=== PATIENT | female | born 1940 | race Caucasian/White ===

== ENCOUNTER → 2016-02-28 | Outpatient (CLI) | payer BC ==
--- NOTE | 2016-02-28 16:19 | DIAGNOSTIC IMAGING REPORT ---
RIBS UNILATERAL WITH PA CHEST CLINICAL HISTORY: FALL, LEFT ANTERIOR RIB PAIN, R/O FRACTURE trauma COMPARISON STUDY: None FINDINGS: Negative left ribs. Negative chest. IMPRESSION: Negative study Electronically signed by: Darnell Jansen M.D. 02/28/2016 4:17 PM Dictated Date/Time: 02/28/2016 4:16 PM
== END | disposition home or self-care (01) ==
LOC: C.RAD 15:51
PROVIDERS: ATTEND Nurse Practitioner Family
DX: R07.81 Pleurodynia (principal)

== ENCOUNTER → 2016-09-03 | Outpatient (CLI) | payer BC ==
--- NOTE | 2016-09-08 12:41 | CODING QUERY MEDICAL NECESSITY ---
SUPPORTING DIAGNOSIS NEEDED A supporting diagnosis is required for the test/procedure performed on this patient in order for us to be reimbursed by the patient's insurance. Please provide a supporting diagnosis for the following test/procedure listed below next to the test name along with your signature. *If there is no additional diagnosis for this patient that would support the following test/procedure please document that below next to the test/procedure. Test(s)/Procedure(s) that require a supporting diagnosis: * DXA, BONE DENSITY AXIAL DIAGNOSIS: Provider Signature: Date: Thank you Hui CCM [employer] Once completed, please kindly fax back to [phone] For questions please call [phone]
== END | disposition home or self-care (01) ==
LOC: C.MAMM 12:38
PROVIDERS: ATTEND Family Medicine
DX: M85.80 Other specified disorders of bone density and structure, unspecified site (principal)

== ENCOUNTER → 2016-09-12 | Outpatient (CLI) | payer BC ==
--- NOTE | 2016-09-12 10:36 | DIAGNOSTIC IMAGING REPORT ---
RIGHT SHOULDER MIN 2 VIEWS ROUTINE CLINICAL HISTORY: RIGHT SHOULDER PAIN Right pain COMPARISON: None. DISCUSSION: Mild degenerative change acromioclavicular and glenohumeral joints. No evidence for fracture or dislocation. No abnormal soft tissue calcifications. IMPRESSION: Mild degenerative change. No acute bony abnormality. The above report was generated using voice recognition software. It may contain grammatical, syntax or spelling errors. Electronically signed by: Darnell Jansen M.D. 09/12/2016 10:35 AM Dictated Date/Time: 09/12/2016 10:35 AM
== END | disposition home or self-care (01) ==
LOC: C.RAD1850 10:08
PROVIDERS: ATTEND Family Medicine
DX: M25.511 Pain in right shoulder (principal)

== ENCOUNTER → 2017-01-21 | Outpatient (CLI) | payer BC ==
--- NOTE | 2017-01-21 13:43 | MAMMOGRAPHY REPORT ---
BILATERAL DIGITAL SCREENING MAMMOGRAM TOMOSYNTHESIS WITH CAD: 01/21/2017 CLINICAL HISTORY: Routine screening. Patient has no complaints. TECHNIQUE: Breast tomosynthesis in addition to standard 2D mammography was performed. Current study was also evaluated with a Computer Aided Detection (CAD) system. COMPARISON: Comparison is made to exams dated: 01/21/2016 mammogram, 01/15/2015 mammogram, 4 mammogram, 01/12/2013 mammogram, 01/12/2012 mammogram, and 01/08/2011 mammogram - [facility]. BREAST COMPOSITION: There are scattered areas of fibroglandular density in both breasts. FINDINGS: A focal asymmetry in the 6:00 left breast is unchanged mammographically [facility], therefore likely benign. There are mild vascular calcifications in the breasts. No new suspicious mass, architectural distortion or cluster of microcalcifications is seen. IMPRESSION: ACR BI-RADS CATEGORY 1: NEGATIVE There is no mammographic evidence of malignancy. A 1 year screening mammogram is recommended. The pa tient will receive written notification of the results. Approximately 10% of breast cancers are not detected with mammography. A negative mammographic report should not delay biopsy if a clinically suggestive mass is present. Harleen Mustafa M.D. ay/:01/21/2017 12:47:00 Drafting Layout Man: Ruthann FRIEDMAN(Clarice)(M)(BD), [facility] letter sent: Normal 1/2 BI-RADS Code: ACR BI-RADS Category 1: Negative
== END | disposition home or self-care (01) ==
LOC: C.MAMM 11:30
PROVIDERS: ATTEND Obstetrics & Gynecology
DX: Z12.31 Encounter for screening mammogram for malignant neoplasm of breast (principal)

== ENCOUNTER 2019-05-09 06:41 | Observation (INO) ==
--- NOTE | 2019-04-07 12:22 | PAT Medication Instructions ---
Medication Instructions Date of Service April 07, 2019 Home Medications aspirin 81 mg tablet,delayed release 81 mg PO QDL multivitamin,kb-sxxx-ywpmnrge 1 tab PO QDL omega-3 fatty acids 1,000 mg capsule 1,000 mg PO QDD omeprazole 20 mg capsule,delayed release 20 mg PO QAM atorvastatin 10 mg PO PM calcium carbonate-vitamin D3 [Calcium 600 + D(3)] 1 cap PO QDL losartan 25 mg PO QAM vit C,G-Ne-mlpty-lutein-zeaxan [PreserVision AREDS-2] 1 tab PO QDL STOP taking 2 weeks before surgery (or as soon as possible if surgery is within 2 weeks) omega-3 fatty acids 1,000 mg capsule 1,000 mg PO QDD vit C,T-Wt-occij-lutein-zeaxan [PreserVision AREDS-2] 1 tab PO QDL DO NOT take the morning of surgery multivitamin,mz-escr-ducpcpkn 1 tab PO QDL calcium carbonate-vitamin D3 [Calcium 600 + D(3)] 1 cap PO QDL losartan 25 mg PO QAM Take morning of surgery With a small sip of water, OTHERWISE NOTHING TO EAT OR DRINK AFTER MIDNIGHT: aspirin 81 mg tablet,delayed release 81 mg PO QDL omeprazole 20 mg capsule,delayed release 20 mg PO QAM Take evening before surgery atorvastatin 10 mg PO PM Other Notes If you have any questions please call us at [phone] or [phone] or [phone] or [phone]
--- NOTE | 2019-04-08 12:40 | Anesthesiology Consultation ---
Date of Service April 08, 2019 Assessment & Plan (1) Encounter for pre-operative examination: Chart Review Chart Review: Acceptable Risk for Surgery and Patient seen in Pre Admission Testing Teaching & Discussion Pre-Anesthesia Teaching/Discussion Notes: Instructed NPO after midnight before surgery,except medications with 15 cc of water. Medication instructions provided according to the PAT guidelines. History Surgery Operation Date: 05/09/19 07:30 Proposed Procedures p Right Total Knee Arthroplasty - Victoriano Zambrano, Height/Weight Height: 4 ft 11 in Weight: 67.7 kg Allergies Allergy/AdvReac Type Severity Reaction Status Date / Time cimetidine [From TagProcureSafe] Allergy Mild RASH Verified 04/04/19 15:27 Medications Home Medications Medication Instructions Recorded Confirmed Last Taken aspirin 81 mg tablet,delayed 81 mg PO QDL 03/28/19 04/04/19 Unknown release multivitamin,aw-rdku-piuitzkm 1 tab PO QDL 03/28/19 04/04/19 Unknown omega-3 fatty acids 1,000 mg 1,000 mg PO QDD 03/28/19 04/04/19 Unknown capsule omeprazole 20 mg capsule,delayed 20 mg PO QAM 03/28/19 04/04/19 Unknown release atorvastatin 10 mg PO PM 04/04/19 04/04/19 Unknown calcium carbonate-vitamin D3 1 cap PO QDL 04/04/19 04/04/19 Unknown [Calcium 600 + D(3)] losartan 25 mg PO QAM 04/04/19 04/04/19 Unknown vit C,X-Ns-gudph-lutein-zeaxan 1 tab PO QDL 04/04/19 04/04/19 Unknown [PreserVision AREDS-2] Past Medical History Medical History GERD (gastroesophageal reflux disease) controlled Hx of skin cancer, basal cell Hx of squamous cell carcinoma of skin Hyperlipidemia Hypertension Obesity Osteoarthritis 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) Exercise / Class Metabolic Activity III < 4 Walking/Shop/Light housework Past Family History Family History Mother Family history of diabetes mellitus Sister Family history of diabetes mellitus Past Surgical History Surgical History History of laser refractive surgery Hx of cataract extraction Hx of colonoscopy Hx of nasal septoplasty Hx of tubal ligation Past Anesthesia History No Hx of Anesthesia Complications and No Family Hx of Anesthesia Complications History of PONV No Hx of PONV and No Hx of Motion Sickness Social History Smoking Status: Never smoker Do You Dip or Chew Tobacco: No Hx Alcohol Use: No Hx Substance Use: No Review of Systems Controlled reflux. Patient denies chest pain, shortness of breath, cough, wheezing, palpitations. Physical Exam Vital Signs VITALS BP 144/73 P 72 TEMP 97.9 SP02 95%RA RESP 18 PHYSICAL Full neck and c-spine range of motion. Full TMJ range of motion. TMD 2.5 finger breaths Mallampati Score 3 Dentition: full upper denture, several crowns and bridge on lower, missing lower molar Lungs: clear throughout to auscultation Cardiac: regular rate and rhythm, no murmurs noted Spine: normal Carotid arteries: negative bruit Extremities: no edema Testing Laboratory Results 04/08/19 13:06 04/08/19 13:06 PT 10.4 Seconds (9.0-12.0) 04/08/19 13:06 INR 1.0 (0.9-1.1) 04/08/19 13:06 APTT 25.6 Seconds (21.0-31.0) 04/08/19 13:06 Blood Type O Positive 04/08/19 13:06 Antibody Screen NEGATIVE 04/08/19 13:06 Electrocardiogram Date: 04/08/19 Findings: + NSR @ (71) Chest X-Ray Date: 04/08/19
--- NOTE | 2019-04-08 13:26 | XRay Report ---
XR chest Pre-admission PA/Lat CLINICAL HISTORY: Preoperative chest COMPARISON STUDY: February 28, 2016 FINDINGS: The cardiac and mediastinal contours are normal. There is no evidence of focal pulmonary co nsolidation. There is no evidence of failure. No pleural effusions are visualized.[ IMPRESSION: No active disease in the chest. ACT 112: Negative or not required by law. Electronically signed by: Dipak Braun M.D. 04/08/2019 1:25 PM
[2019-04-08 15:14] LABS: Basophils # (auto) 0.04 K/uL (0-0.2); Basophils % (auto) 0.5 %; Eosinophils # (auto) 0.07 K/uL (0-0.5); Eosinophils % (auto) 0.9 %; Hematocrit (blood only) 39.2 % (37-47); Hemoglobin 12.3 g/dL (12.0-16.0); Immature Granulocytes # (auto) 0.01 K/uL (0.00-0.02); Immature Granulocytes % (auto) 0.1 %; Lymphocytes # (auto) 2.34 K/uL (1.2-3.4); Lymphocytes % (auto) 29.8 %; Mean Corpuscular Hemoglobin 25.4 pg (25-34); Mean Corpuscular Hgb Conc 31.4 g/dL (32-36); Mean Platelet Volume 9.8 fL (7.4-10.4); Monocytes # (auto) 0.69 K/uL (0.11-0.59); Monocytes % (auto) 8.8 %; Neutrophils # (auto) 4.71 K/uL (1.4-6.5); Neutrophils % (auto) 59.9 %; Platelet Count 309 K/uL (130-400); RDW Coefficient of Variation 17.3 % (11.5-14.5); RDW Standard Deviation 51.5 fL (36.4-46.3); Red Blood Count 4.84 M/uL (4.2-5.4); White Blood Count 7.86 K/uL (4.8-10.8)
[2019-04-08 15:25] LABS: Partial Thromboplastin Ratio 0.9; Partial Thromboplastin Time 25.6 Seconds (21.0-31.0); Prothrombin Time 10.4 Seconds (9.0-12.0)
[2019-04-08 15:27] LABS: BUN Creatinine Ratio 22.9 (10-20); Calcium 8.8 mg/dl (8.5-10.1); Creatinine Clr Calc Pharmacy 41.7 ml/min; Est GFR (African American) 68.2; Est GFR (Non-African American) 58.9; Potassium 4.2 mmol/L (3.5-5.1)
--- NOTE | 2019-04-09 08:09 | Electrocardiogram Report ---
Test Reason : Blood Pressure : / mmHG Vent. Rate : 071 BPM Atrial Rate : 071 BPM P-R Int : 164 ms QRS Dur : 070 ms QT Int : 392 ms P-R-T Axes : 074 051 057 degrees QTc Int : 425 ms Normal sinus rhythm Normal ECG When compared with ECG of 12-SEP-1997 09:22, No significant change was found Confirmed by Doug Helms ([id number]) on 04/09/2019 8:09:40 AM Referred By: Victoriano Zambrano Confirmed By:Doug Helms
--- NOTE | 2019-05-06 13:40 | History & Physical Report ---
Date of Service May 06, 2019 Assessment & Plan (1) Osteoarthritis of right knee: We will proceed with a right total knee arthroplasty. Postoperatively she will be placed on aspirin and kept overnight in the hospital for postoperative medical management. She plans to use energy physical therapy upon discharge. Pam is a low to moderate risk for a right knee replacement surgery. Present on Admission?: Yes History of Present Illness Chief Complaint: Primary osteoarthritis of the right knee Primary Care Provider: Tracy Flannery DO Pam is a pleasant 78-year-old female who is been dealing with chronic increasing right knee pain. X-rays and clinical examination have been diagnostic for advanced osteoarthritis of the right knee. After failing extensive conservative treatment, she has elected to proceed with a right total knee arthroplasty. Allergies Allergy/AdvReac Type Severity Reaction Status Date / Time cimetidine [From TagUnicont] Allergy Mild RASH Verified 04/04/19 15:27 Home Medications Home Medications Medication Instructions Recorded Confirmed Type aspirin 81 mg tablet,delayed 81 mg PO QDL 03/28/19 04/04/19 History release multivitamin,hv-vnes-kvtubnxa 1 tab PO QDL 03/28/19 04/04/19 History omega-3 fatty acids 1,000 mg 1,000 mg PO QDD 03/28/19 04/04/19 History capsule omeprazole 20 mg capsule,delayed 20 mg PO QAM 03/28/19 04/04/19 History release atorvastatin 10 mg PO PM 04/04/19 04/04/19 History calcium carbonate-vitamin D3 1 cap PO QDL 04/04/19 04/04/19 History [Calcium 600 + D(3)] losartan 25 mg PO QAM 04/04/19 04/04/19 History vit C,I-Uq-qmsvd-lutein-zeaxan 1 tab PO QDL 04/04/19 04/04/19 History [PreserVision AREDS-2] Past Med/Surg History Medical History GERD (gastroesophageal reflux disease) controlled Hx of skin cancer, basal cell Hx of squamous cell carcinoma of skin Hyperlipidemia Hypertension Obesity Osteoarthritis 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) Surgical History History of laser refractive surgery Hx of cataract extraction Hx of colonoscopy Hx of nasal septoplasty Hx of tubal ligation Family History Mother Family history of diabetes mellitus Sister Family history of diabetes mellitus Social History Preferred Language: Occitan Communication Ability: Effective Beliefs That Will Affect Care: None Current Living Situation: Spouse Feels Safe at Home: Yes Smoking Status: Never smoker Do You Dip or Chew Tobacco: No ; Second Hand Exposure: Yes ; Hx Alcohol Use: No Hx Substance Use: No Review of Systems Review of Systems: All systems reviewed & are unremarkable except as noted in HPI & below Physical Exam Constitutional: WD/WN, vitals as above Eyes: PERRL, conjunctivae normal, anicteric sclerae ENMT: external ear and nose normal, oropharynx normal Neck: trachea midline, no thyromegaly Respiratory: normal respiratory effort Cardiovascular: RRR, no murmur, no edema Gastrointestinal (Abdomen): normal bowel sounds, soft, nontender, no hepatosplenomegaly Musculoskeletal: On physical examination of the right knee there is a trace effusion. There is near full range of motion and no evidence of instability. There is significant tenderness palpation along the medial and lateral joint lines and over the distal femoral condyles. Psychiatric: A+Ox3, euthymic affect Results & Data Diagnostic Findings Radiographs of the right knee demonstrate advanced osteoarthritis with joint space narrowing osteophyte formation and anta-ve-qieu articulation. PG Care Time/CCT Total # of Minutes Spent Total Time Spent with Patient: Total time spent is greater than 50% in coordination of care (as documented) at patient's floor/unit and/or counseling patient: Coding Level of Care Code 72559 Initial Inpt Care Lvl 2 Diagnoses Osteoarthritis of right knee M17.11
[~2019-05-09 06:41] MED LIST: ACETAMINOPHEN 500 MG TAB PO SCH; BUPIVACAINE 0.5 % 5 MG/1 ML PF 10ML VIAL ONE; CEFAZOLIN 1000MG 1,000 MG/7.5 ML SYR IV SCH; FAMOTIDINE 20 MG TAB PO SCH; GABAPENTIN 300 MG CAP PO SCH; LR 500ML BOLUS, THEN 15ML/HR IV SCH; LR 60ML/HR IV SCH; ROPIVACAINE 0.5% HCL/PF 150 MG, BUPIVACAINE 0.5% MPF 30 ML, EPINEPHrine 30MG/30ML (OR U... INSTIL SCH; TRANEXAMIC ACID 1,000 MG **IV Intra-op IV SCH; TRANEXAMIC ACID 1,000 MG **IV Pre-op IV SCH; dexAMETHasone 4 MG TAB PO SCH
[2019-05-09] MEDS ORDERED: fentaNYL citrate 100 MCG/2 ML VIAL ONE (07:39)
[2019-05-09] MEDS ORDERED: PROPOFOL IV EMULSION 10 MG/ML 20 ML VIAL IV ONE (07:39)
[2019-05-09] MEDS ORDERED: MIDAZOLAM HCL 1 MG/ML 2ML VIAL ONE (07:39)
[2019-05-09] MEDS ORDERED: LIDOCAINE HCL 2% 2 ML VIAL/AMP(20MG/ML) INFIL ONE (07:39)
[2019-05-09] MEDS ORDERED: DEXAMETHASONE SOD INJ 4 MG/ML VIAL ONE (07:39)
[2019-05-09] MEDS ORDERED: ONDANSETRON INJ 2 MG/ML 2 ML VIAL ONE (07:39)
--- NOTE | 2019-05-09 08:48 | History & Physical Bridge Note ---
Date of Service May 09, 2019 History & Physical Bridge Note I have examined the patient, reviewed the History & Physical and in the interval since the performance of the History & Physical I have noted the following changes of clinical significance: no changes noted
[2019-05-09] MEDS ORDERED: ONDANSETRON INJ 2 MG/ML 2 ML VIAL IV PRN ×2 (09:30→13:25)
[2019-05-09] MEDS ORDERED: ePHEDrine sulfate 50 MG/ML AMP IV PRN (09:30)
[2019-05-09] MEDS ORDERED: fentaNYL citrate 100 MCG/2 ML VIAL IV PRN (09:30)
[2019-05-09] MEDS ORDERED: ATROPINE SULFATE 0.1 MG/ML 10ML SYR IV PRN (09:30)
--- NOTE | 2019-05-09 10:40 | Operative Report ---
PG Post Operative Report Pre & Post Diagnosis Operation Date: 05/09/19 09:20 Pre-Op Diagnosis: Right Knee Degenerative Joint Disease Post-Op Diagnosis: Right Knee Degenerative Joint Disease I identified the patient and participated in the time-out.: Yes Procedure Operation Date: 05/09/19 09:20 Actual Procedures p Right Total Knee Arthroplasty(Right) - Victoriano Zambrano DO Surgeon Victoriano Zambrano DO [employer] Victoriano Colon PAC Estimated Blood Loss 20 Findings Consistent with Post-Op Diagnosis Specimens Right femoral and tibial bone Complications none Disposition Disposition: Recovery Room Indications Pam is a pleasant 79-year-old female who is been dealing with chronic increasing right knee pain. X-rays and clinical examination are diagnostic for primary osteoarthritis of the right knee. After failing conservative treatment, she elected to proceed with a right total knee arthroplasty. Description of Procedure Implants used: I used a [employer] Vanguard total knee arthroplasty system with a size 62.5 femur, 67 tibia, 28 patella, and a size 10 PS plus polyethylene bearing. All components were cemented in place with Palacos G cement. Pam arrived [facility] for the above procedure. She was seen in the preoperative holding area and the operative extremity was identified and signed. She was given a preoperative antibiotic, TXA, a spinal anesthetic and an adductor nerve block. She was taken back to the operating room and laid on the table in supine position. She was given basic sedation. The operative knee was then prepped and draped in sterile fashion. A timeout was done, and the patient and the operative extremity was properly identified. A midline incision was made directly over the patella. Dissection was taken down to the extensor mechanism. A subvastus arthrotomy was used. The medial retinaculum was released and the fat pad was mostly excised. The knee was flexed and the ACL, PCL, and meniscus were removed. A drill was sent down the center of the femoral canal followed by an intramedullary janet. Off that janet a distal femoral cutting block was placed. 9 mm was resected off the distal femur at 5 of valgus. A posterior referencing AP sizing guide was then placed on the distal femur. The femur measured to be a size 62.5. 2 drill holes were placed in 3 of external rotation. A 4-in-1 cutting block was then impacted into place. Anterior, posterior, and chamfer cuts were then made. The posterior stabilizing box guide was then impacted into place and the box was resected for the posterior stabilizing component. The proximal tibia was then exposed. A drill was sent down the center of the tibial canal followed by an intramedullary janet. Off that janet a proximal tibial resection guide was placed. The proximal tibia was then resected. The tibia measured to be a size 67. The tibial plate was then placed in the appropriate rotation and the tibia was punched. The posterior aspect of the knee was then opened up and any additional meniscus fragments and osteophytes were removed. Trial components were then placed. I used a size 10 PS plus polyethylene insert. The knee was brought through a full range of motion and felt to be stable. The patella was then everted and 8 mm was resected off the posterior aspect of the patella. The patella measured to be a size 28. 3 peg holes were then drilled. A trial patella was placed. The knee was once again brought through a full range of motion and felt to be stable. Trial components were then removed. The surrounding soft tissues were injected with 100 cc of an orthopedic pain control cocktail. All components were then cemented into place with Palacos G cement. The final polyethylene insert was then snapped into place and the anterior bar was locked. Once cement was dry the tourniquet was deflated. Hemostasis was obtained. A dilute betadyne lavage was then done for 3 minutes. The joint was then irrigated with normal saline solution. The subvastus arthrotomy was then closed with #1 Vicryl suture. The skin was closed with 2-0 Vicryl, 3-0V lock suture, and avery. A soft compressive dressing was placed. She was then transferred to a hospital bed and taken to the postanesthesia care unit in stable condition. She tolerated the procedure well. Victoriano Colon PA-C, was present for the entire procedure. He was critical for patient positioning, prepping, draping, retraction exposure, wound closure and application of sterile dressing. I attest to the content of the Intraoperative Record and any orders documented therein. Any exceptions are noted below.
--- NOTE | 2019-05-09 12:47 | Anesthesiology Progress Note ---
Date of Service May 09, 2019 Anesthesia Post Procedure Vital Signs Vital Signs: Temp Pulse Pulse Resp BP Pulse Ox 05/09/19 12:40 70 16 127/57 L 97 05/09/19 12:30 68 16 133/57 L 97 05/09/19 12:20 67 16 128/57 L 97 05/09/19 12:10 71 16 124/57 L 97 05/09/19 12:00 70 15 129/57 L 97 05/09/19 11:50 72 20 137/59 L 97 05/09/19 11:40 67 20 127/57 L 97 05/09/19 11:30 68 17 134/61 96 05/09/19 11:20 71 21 133/57 L 97 05/09/19 11:10 79 19 141/62 H 98 05/09/19 11:00 97.9 F 73 18 129/52 L 98 05/09/19 07:04 98.1 F 89 20 179/71 H 94 Transfer of Care Handoff Completed per policy Notes Mental Status: alert / awake / arousable and participated in evaluation Patient Amnestic to Procedure: Yes Nausea / Vomiting: adequately controlled Pain: adequately controlled Airway Patency, RR, SpO2: stable & adequate BP & HR: stable & adequate Hydration State: stable & adequate Neuraxial Anesthesia: was administered and sensory block is resolving Anesthetic Complications: no major complications apparent and Pt Satisfied with anesthetic care
[2019-05-09] MEDS ORDERED: OXYCODONE HCL IR 5 MG TAB (IMMEDIATE RELEASE) PO PRN (13:25)
[2019-05-09] MEDS ORDERED: MAGNESIUM HYDROXIDE SUSP 30 ML UDC PO PRN (13:25)
[2019-05-09] MEDS ORDERED: bisacodyL 10 MG SUPP PR PRN (13:25)
[2019-05-09] MEDS ORDERED: METOCLOPRAMIDE HCL INJ 5 MG/ML 2 ML VIAL IV PRN (13:25)
[2019-05-09] MEDS ORDERED: HYDROmorphone INJ 0.5 MG/0.5 ML SYR IV PRN (13:25)
[2019-05-09] MEDS ORDERED: NALOXONE HCL 0.4 MG/1 ML VIAL/CARP IV PRN (13:25)
[2019-05-09] MEDS: SODIUM CHLORIDE 0.9% 1000ML 1,000 ML IV SCH (14:22)
[2019-05-09] MEDS: ACETAMINOPHEN 500 MG TAB PO SCH ×2 (14:23→22:13)
[2019-05-09] MEDS: KETOROLAC TROMETHAMINE 15 MG/ML VIAL IV SCH ×2 (15:00→22:11)
[2019-05-09] MEDS: CEFAZOLIN 2000MG 2,000 MG/15 ML SYR IV SCH (17:35)
[2019-05-09] MEDS: DOCUSATE SODIUM 100 MG CAP PO SCH (20:44)
[2019-05-09] MEDS: ASPIRIN 81 MG ECTAB PO SCH (20:46)
[2019-05-09] MEDS ORDERED: ATORVASTATIN 10 MG TAB PO SCH (21:00)
[2019-05-09] MEDS ORDERED: SENNA 8.6 MG TAB PO SCH (21:00)
[2019-05-10] MEDS: SODIUM CHLORIDE 0.9% 1000ML 1,000 ML IV SCH (00:37)
[2019-05-10] MEDS: CEFAZOLIN 2000MG 2,000 MG/15 ML SYR IV SCH (01:03)
[2019-05-10] MEDS: KETOROLAC TROMETHAMINE 15 MG/ML VIAL IV SCH ×2 (03:25→10:10)
[2019-05-10] MEDS: ACETAMINOPHEN 500 MG TAB PO SCH (05:39)
[2019-05-10 06:23] LABS: Hematocrit (blood only) 35.9 % (37-47); Hemoglobin 11.4 g/dL (12.0-16.0); Mean Corpuscular Hemoglobin 26.9 pg (25-34); Mean Corpuscular Hgb Conc 31.8 g/dL (32-36); Mean Corpuscular Volume 84.7 fL (80-100); Mean Platelet Volume 9.7 fL (7.4-10.4); Platelet Count 251 K/uL (130-400); RDW Coefficient of Variation 17.1 % (11.5-14.5); RDW Standard Deviation 52.8 fL (36.4-46.3); Red Blood Count 4.24 M/uL (4.2-5.4); White Blood Count 10.93 K/uL (4.8-10.8)
[2019-05-10 06:58] LABS: BUN Creatinine Ratio 21.5 (10-20); Calcium 8.5 mg/dl (8.5-10.1); Est GFR (African American) 56.9; Est GFR (Non-African American) 49.1; Potassium 3.9 mmol/L (3.5-5.1)
--- NOTE | 2019-05-10 06:59 | Orthopedic Progress Note ---
Date of Service May 10, 2019 Assessment & Plan (1) History of total right knee replacement: Overall she is doing very well. She is not having much pain in the right knee. She will be seen by physical therapy today for ambulation and range of motion exercises. She is on aspirin for DVT prophylaxis. She can be discharged home later today. She will follow-up with orthopedics in 2 weeks. Present on Admission?: Yes Subjective Pam was seen and examined at bedside this morning. Overall she is doing very well. She denies any pain in the right knee. She is already been up and ambulating around the nurses station. She has no complaints. Physical Exam Musculoskeletal: On physical examination of the right knee, the dressing is clean and dry. She has active dorsiflexion and plantarflexion of her right ankle. Her leg is out in full extension. Results & Data ([facility]) Vital Signs (Past 12 Hours) Vital Signs Temp Pulse Resp BP Pulse Ox 05/10/19 03:20 36.6 C 67 18 139/63 96 05/09/19 22:48 36.4 C L 66 18 143/60 H 93 05/09/19 19:25 36.7 C 69 17 120/64 96 Laboratory Results H & H 04/08/19 05/10/19 Range/Units 13:06 06:01 Hgb 12.3 11.4 L (12.0-16.0) g/dL Hct 39.2 35.9 L (37-47) % Coagulation 04/08/19 Range/Units 13:06 INR 1.0 (0.9-1.1) Diagnostic Findings Postoperative x-rays of the right knee show the prosthesis to be in anatomic alignment without any evidence of fracture, dislocation, or loosening. PG Care Time/CCT Total # of Minutes Spent Total Time Spent with Patient: Total time spent is greater than 50% in coordination of care (as documented) at patient's floor/unit and/or counseling patient: Coding Level of Care Code None Diagnoses History of total right knee replacement Z96.651
--- NOTE | 2019-05-10 07:00 | Discharge Summary ---
Date of Service May 10, 2019 Admission HPI Per Admitting Provider Pam is a pleasant 78-year-old female who is been dealing with chronic increasing right knee pain. X-rays and clinical examination have been diagnostic for advanced osteoarthritis of the right knee. After failing e xtensive conservative treatment, she has elected to proceed with a right total knee arthroplasty. Principal Diagnosis Right total knee arthroplasty Discharge Data Allergies Allergy/AdvReac Type Severity Reaction Status Date / Time cimetidine [From Tagamet] Allergy Mild RASH Verified 05/09/19 07:02 Consultations 05/09/19 13:25 Consult Case Management - Discharge Planning Routine Procedures Performed Operation Date: 05/09/19 09:20 Actual Procedures p Right Total Knee Arthroplasty(Right) - Victoriano Zambrano DO Ordered Studies 05/09/19 05:00 US - OR guided needle placemen Routine Hospital Course (1) History of total right knee replacement: On May 09, 2019 Pam arrived at [facility] and underwent a right total knee arthroplasty without complication. She had a spinal anesthetic. Postoperatively she was started on aspirin for DVT prophylaxis and transferred to the general orthopedic floors. Her hospital course was uneventful. On postop day #1 her H&H was stable and her pain was well controlled. She was able to participate well with physical therapy doing ambulation and range of motion exercises. She was then discharged home. She will follow-up with orthopedics in 2 weeks. Total Time Total Time Spent Total Time Spent (In Minutes): 20 Discharge Plan Discharge Items Patient Disposition: Home - Home Health Services Reason For Visit: Right Knee Degenerative Joint Disease Discharge Diagnosis: Right total knee arthroplasty Activity: As commented below Non-emergency contact: Surgeon Call non-emergency contact if: your wound has increased redness and your wound has increased drainage Follow-up/Referrals: Tracy Flannery DO [Primary Care Provider] - Diet: Regular Addtl Attending Provider Instructions: Activity and Therapy Recommendations: * If you are using [facility] then therapy will be provided at your home until they feel you have accomplished all of your goals. * If you are using [facility] then Physical Therapy will be provided until they feel you are ready to start Outpatient Physical Therapy. * If you are not using home therapy then Outpatient Physical Therapy should start about 3-5 days from your day of surgery. Therapy will last about 6-10 weeks * It is important not to put a pillow under your knee when you are relaxing or sleeping. It is just as important to make sure you are getting your knee perfectly straight as it is to regain your knee bend. * You were shown a series of exercises in the hospital. Do these exercises three times each day including the exercises you were shown in physical therapy. * Get up and walk several times each day. For the first four weeks, try not to stand or walk for more than one hour at a time. If you do stand or walk for more than one hour, you will not hurt anything, but your leg will likely swell. * As you feel comfortable, you may change from the walker or crutches to a cane and then to independent walking. Medications: * Narcotic You will likely be sent home from the hospital with a prescription for the narcotic pain medication that worked best throughout your stay. * Aspirin Most patients will be required to take Aspirin 81mg twice a day for 6 weeks after surgery. This is obtained regx-coz-fsllxed and a prescription is not necessary. * Other medications may be prescribed for specific circumstances. If you have any questions, please call the office at . * Resume previous home medications unless otherwise instructed TEDs/Elastic Stockings: The white elastic stockings help limit swelling and prevent blood clots from forming in your legs.~ The more you wear them, the more they work. Wear them for six weeks. Dressing Care: If the incision is not draining then you may leave the avery open to air. If there is a little bit of drainage or if the avery are getting stuck on your clothing then cover the incision with a dry dressing. The avery will be removed at your 2 week follow-up appointment. Showering: You may shower 5 days from the day of surgery. Let the soapy shower water run over the avery and pat them dry. Do not scrub or soak the incision. Things To Watch For: * Drainage from the incision site that occurs more than one week after your surgery. * Increased redness at the incision site. * Fever above 102 degrees Fahrenheit. * Unusual chest pain or shortness of breath. * Call [facility] at with any of the above problems Follow-Up Visit: Follow-up with Dr. Zambrano 2-3 weeks after your day of surgery. An appointment was probably scheduled when you signed-up for surgery in the office. If you have any questions call Office Instructions: More detailed instructions as well as Frequently Asked Questions were provided in a folder by our office when you signed-up for surgery. Please review these instructions when you get home. If you have any further questions or concerns, please feel free to call the office at [phone] Pending Studies at Discharge: No Stand-Alone Forms: My [facility] Data, Smoking Cessation Medications and DC Order Prescriptions: New oxycodone 5 mg Tablet 5 mg PO Q4H PRN (Reason: pain) Qty: 30 RF: 0 Continued Complete Multivitamin Tablet 1 tab PO QDL RF: 0 omeprazole 20 mg capsule,delayed release(DR/EC) 20 mg PO QAM RF: 0 omega-3 fatty acids [Fish Oil Concentrate] 1,000 mg capsule 1,000 mg PO QDD RF: 0 atorvastatin 10 mg Tablet 10 mg PO PM RF: 0 Calcium 600 + D(3) 600 mg calcium- 200 unit Capsule 1 cap PO QDL RF: 0 losartan 25 mg Tablet 25 mg PO QAM RF: 0 PreserVision AREDS-2 [id number] xs-nmff-[id number]-mg Capsule 1 tab PO QDL RF: 0 Changed aspirin [Adult Low Dose Aspirin] 81 mg tablet,delayed release (DR/EC) 81 mg PO BID 42 Days Qty: 0 RF: 0 Discharge Orders: Discharge Order (Routine); Ordered 05/10/19 Ordered By: Victoriano Zambrano Admission Data Admit Date/Time: 05/09/19 11:01 Attending Provider: Victoriano Zambrano Admit Provider: Victoriano Zambrano Primary Care Provider: Tracy Flannery Coding Level of Care Code D/C Day Management <30 mins Diagnoses History of total right knee replacement Z96.651
--- NOTE | 2019-05-10 07:11 | XRay Report ---
XR knee RT 1 or 2V routine CLINICAL HISTORY: Surgical Post Op COMPARISON: Knee radiographs September 15, 2018. FINDINGS: Alignment of the total right knee arthroplasty is anatomic. There is no periprosthetic fra cture or unexpected radiopaque foreign body. There are skin avery. IMPRESSION: Expected findings following total right knee arthroplasty. ACT 112: Negative or not required by law. Electronically signed by: Markos Rangel M.D. 05/10/2019 7:10 AM
[2019-05-10] MEDS ORDERED: dexAMETHasone 4 MG TAB PO SCH (08:00)
[2019-05-10] MEDS: DOCUSATE SODIUM 100 MG CAP PO SCH (08:46)
[2019-05-10] MEDS: ASPIRIN 81 MG ECTAB PO SCH (08:47)
[2019-05-10] MEDS ORDERED: PANTOprazole 40 MG TAB PO SCH (09:00)
[2019-05-10] MEDS ORDERED: MULTIVITAMIN TAB PO SCH (09:00)
[2019-05-10] MEDS ORDERED: LOSARTAN POTASSIUM 25 MG TAB PO SCH (09:00)
--- NOTE | 2019-05-10 09:27 | Anesthesiology Progress Note ---
Date of Service May 10, 2019 Anesthesia Post Procedure Vital Signs Vital Signs: Temp Pulse Pulse Resp BP Pulse Ox 05/10/19 07:54 36.6 C 74 16 150/68 H 93 05/10/19 03:20 36.6 C 67 18 139/63 96 05/09/19 22:48 36.4 C L 66 18 143/60 H 93 05/09/19 19:25 36.7 C 69 17 120/64 96 05/09/19 18:48 36.7 C 66 17 128/69 93 05/09/19 16:11 36.8 C 69 17 156/68 H 95 05/09/19 15:08 36.5 C 79 16 147/84 H 94 05/09/19 14:12 36.9 C 90 18 147/66 H 97 05/09/19 13:39 36.4 C L 66 16 151/69 H 98 05/09/19 13:10 36.6 C 68 18 135/61 97 05/09/19 12:50 36.5 C 72 17 141/65 H 96 05/09/19 12:40 70 16 127/57 L 97 05/09/19 12:30 68 16 133/57 L 97 05/09/19 12:20 67 16 128/57 L 97 05/09/19 12:10 71 16 124/57 L 97 05/09/19 12:00 70 15 129/57 L 97 05/09/19 11:50 72 20 137/59 L 97 05/09/19 11:40 67 20 127/57 L 97 05/09/19 11:30 68 17 134/61 96 05/09/19 11:20 71 21 133/57 L 97 05/09/19 11:10 79 19 141/62 H 98 05/09/19 11:00 36.6 C 73 18 129/52 L 98 Notes Mental Status: alert / awake / arousable and participated in evaluation Nausea / Vomiting: adequately controlled Pain: adequately controlled Airway Patency, RR, SpO2: stable & adequate BP & HR: stable & adequate Hydration State: stable & adequate
== END 2019-05-10 12:00 | disposition home health service (06) ==
LOC: 3E 06:41 → ASU 06:41

== ENCOUNTER 2020-11-19 13:15 | Inpatient (IN) ==
[~2020-11-19 13:15] MED LIST changes: -ACETAMINOPHEN 500 MG TAB PO SCH; -BUPIVACAINE 0.5 % 5 MG/1 ML PF 10ML VIAL ONE; -CEFAZOLIN 1000MG 1,000 MG/7.5 ML SYR IV SCH; -FAMOTIDINE 20 MG TAB PO SCH; -GABAPENTIN 300 MG CAP PO SCH; +HEPARIN SOD (PORCINE) 1000 UNIT/ML ONE; -LR 500ML BOLUS, THEN 15ML/HR IV SCH; -LR 60ML/HR IV SCH; -ROPIVACAINE 0.5% HCL/PF 150 MG, BUPIVACAINE 0.5% MPF 30 ML, EPINEPHrine 30MG/30ML (OR U... INSTIL SCH; +TICAGRELOR 90 MG TAB PO ONE; -TRANEXAMIC ACID 1,000 MG **IV Intra-op IV SCH; -TRANEXAMIC ACID 1,000 MG **IV Pre-op IV SCH; -dexAMETHasone 4 MG TAB PO SCH
--- NOTE | 2020-11-19 13:28 | Pre Anesthesia Assessment ---
Date of Service November 19, 2020 Pre Sedation Assessment Cardiovascular RRR, no murmur, no edema Respiratory normal respiratory effort, lungs clear to auscultation Pre-Sedation Airway Assessment Smoking Status: Never smoker Hx Sleep Apnea: No Hx Difficult Intubation: No Short, Thick Neck: No Thyromental Distance: > or= 3.5 Finger Breadths Oral Cavity: + WNL Mallampati Class: III ASA: ASA4 Procedure Planning Contraindications for Sedation: none Current Medications Reviewed: Yes Notes The planned sedation has been discussed with the patient. Informed Consent was obtained. I have identified the patient, determined the appropriateness of sedation and have assessed the patient immediately prior to the procedure. All medicine(s) and interventions are by my order.
[2020-11-19] MEDS ORDERED: MIDAZOLAM HCL 1 MG/ML 2ML VIAL ONE (13:31)
[2020-11-19] MEDS ORDERED: fentaNYL citrate 100 MCG/2 ML VIAL ONE (13:32)
[2020-11-19] MEDS ORDERED: NITROGLYCERIN/D5W 100MCG/ML 20ML SYR ONE (13:32)
[2020-11-19] MEDS ORDERED: HEPARIN (PORCINE) 1000 UNIT/ML 10 ML (CATH LAB USE ONLY) ONE (13:32)
[2020-11-19] MEDS ORDERED: niCARdipine HCL INJ 2.5 MG/ML 10 ML AMP ONE (13:32)
--- NOTE | 2020-11-19 13:33 | Cardiology Consultation ---
Date of Consultation November 19, 2020 Assessment & Plan (1) Acute AL: Presentation consistent with inferolateral STEMI and recommend proceeding with emergent cardiac catheterization and likely primary PCI. No apparent contraindications to procedure. Discussed risks, benefits, alternatives of procedure with patient and they are willing to proceed. Given IV heparin and ticagrelor 180 mg in the ED. Further recommendations pending findings of coronary angiography. History of Present Illness Reason for Consultation: Heart alert History of Present Illness 80-year-old woman here with acute chest pain and ECG concerning for acute AL. Patient seen emergently in the ED after heart alert activated en route. No prior cardiac history. Cardiac risk factors include hypertension, dyslipidemia. Other medical issues include GERD, osteoarthritis. Chest pain began approximately 2 to 3 hours prior to arrival while trimming bushes in her yard. Describes 9 out of 10 substernal pain with associated nausea, diaphoresis. Denies similar symptoms in the past. Given sublingual nitroglycerin in route. Chest pain at time of arrival still 8-9/10. Hemodynamically stable. EKG showed [address] elevation on ECG en route. EKG on arrival showed sinus rhythm with improved inferior ST elevations but persistent lateral ST elevations and elevation in aVR. Allergies Allergy/AdvReac Type Severity Reaction Status Date / Time cimetidine [From [employer]] Allergy Mild RASH Verified 08/25/19 07:18 Home Medications Medication Instructions Recorded Confirmed Type multivitamin,cd-[id number]-[id number] 1 tab PO QDL 03/28/19 01/04/20 History (Complete Multivitamin) omega-3 fatty acids 1,000 mg 1,000 mg PO QDD 03/28/19 01/04/20 History capsule (Fish Oil Concentrate) omeprazole 20 mg capsule,delayed 20 mg PO QAM 03/28/19 01/04/20 History release atorvastatin 10 mg tablet 10 mg PO PM 04/04/19 01/04/20 History calcium carbonate-vitamin D3 600 1 cap PO QDL 04/04/19 01/04/20 History mg calcium-200 unit capsule (Calcium 600 + D(3)) losartan 25 mg tablet 25 mg PO QAM 04/04/19 01/04/20 History vit C 250 mg-vit E 90 mg-zinc 40 1 tab PO QDL 04/04/19 01/04/20 History mg-copper 1 au-gpqgta-ztegeh capsule (PreserVision AREDS-2) aspirin 81 mg tablet,delayed 81 mg PO BID 42 Days #0 tab 05/09/19 01/04/20 Rx release (Adult Low Dose Aspirin) oxycodone-acetaminophen 5 mg-325 1 tab PO Q6H PRN #20 tab 08/25/19 01/04/20 Rx mg tablet (Percocet) Patient History Medical History (Updated 11/19/20 @ 13:32 by Jay Chandler MD) GERD (gastroesophageal reflux disease) controlled Hx of skin cancer, basal cell Hx of squamous cell carcinoma of skin Hyperlipidemia Hypertension Obesity Osteoarthritis 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) Surgical History History of esophagogastroduodenoscopy (EGD) History of laser refractive surgery History of Mohs micrographic surgery for skin cancer x2 History of tonsillectomy History of tooth extraction all upper teeth History of total right knee replacement (~04/2019) Hx of cataract extraction Hx of colonoscopy Hx of nasal septoplasty Hx of tubal ligation Family History Mother Family history of diabetes mellitus Sister Family history of diabetes mellitus Other No family history of adverse response to anesthesia Social History Smoking Status: Never smoker Second Hand Exposure: Yes (father smoked); Hx Alcohol Use: Yes Alcohol type: wine Hx Substance Use: No Preferred Language: Croatian Communication Ability: Effective Ear Muff Assembler Required: No Beliefs That Will Affect Care: None marital status: Current Living Situation: Spouse Feels Safe at Home: Yes Assistive Devices: Denture - Upper Review of Systems Review of Systems: Not completed in the setting of emergent situation Physical Exam Physical Exam: General: Comfortable HEENT: Sclerae anicteric Lungs: Clear to auscultation bilaterally Cardiac: Regular rate and rhythm, no murmurs. Vascular: 2+ radial Abdomen: Soft, nontender Extremities: Well perfused, no peripheral edema Neuro: Nonfocal Psych: Alert orient x3, normal affect and mood PG Care Time/CCT Total # of Minutes Spent Total Time Spent with Patient: Total time spent is greater than 50% in coordination of care (as documented) at patient's floor/unit and/or counseling p atient: Coding Level of Care Code 83644 Initial Inpt Care Lvl 3 Diagnoses Acute AL I21.9
[2020-11-19 13:40] LABS: iSTAT Hemoglobin 12.9 g/dl (12.0-16.0); iSTAT Ionized Calcium 1.2 mmol/l (1.12-1.32)
[2020-11-19 13:42] LABS: Basophils # (auto) 0.02 K/uL (0-0.2); Basophils % (auto) 0.2 %; Eosinophils # (auto) 0.04 K/uL (0-0.5); Eosinophils % (auto) 0.4 %; Hematocrit (blood only) 39.9 % (37-47); Hemoglobin 12.4 g/dL (12.0-16.0); Immature Granulocytes # (auto) 0.02 K/uL (0.00-0.02); Immature Granulocytes % (auto) 0.2 %; Lymphocytes # (auto) 3.37 K/uL (1.2-3.4); Lymphocytes % (auto) 34.7 %; Mean Corpuscular Hemoglobin 28.2 pg (25-34); Mean Corpuscular Hgb Conc 31.1 g/dL (32-36); Mean Corpuscular Volume 90.9 fL (80-100); Mean Platelet Volume 10.1 fL (7.4-10.4); Monocytes # (auto) 0.61 K/uL (0.11-0.59); Monocytes % (auto) 6.3 %; Neutrophils # (auto) 5.65 K/uL (1.4-6.5); Neutrophils % (auto) 58.2 %; Platelet Count 282 K/uL (130-400); RDW Coefficient of Variation 14.3 % (11.5-14.5); RDW Standard Deviation 47.8 fL (36.4-46.3); Red Blood Count 4.39 M/uL (4.2-5.4); White Blood Count 9.71 K/uL (4.8-10.8)
[2020-11-19 13:53] LABS: Partial Thromboplastin Time 27.3 Seconds (21.0-31.0); Prothrombin Time 10.5 Seconds (9.0-12.0)
[2020-11-19] MEDS ORDERED: EPTIFIBATIDE 2 MG/ML 10 ML VIAL (CATH LAB USE ONLY) IV ONE ×3 (14:07→14:20)
[2020-11-19 14:17] LABS: Albumin Level 3.5 gm/dl (3.4-5.0); BUN Creatinine Ratio 15.9 (10-20); Calcium 9.5 mg/dl (8.5-10.1); Creatinine Clr Calc Pharmacy 36.5 ml/min; Est GFR (African American) 59.2 ml/min; Est GFR (Non-African American) 51.1 ml/min; Magnesium 2.3 mg/dl (1.8-2.4); Potassium 3.9 mmol/L (3.5-5.1)
--- NOTE | 2020-11-19 14:27 | Post Anesthesia Assessment ---
Date of Service November 19, 2020 Post Sedation Assessment Vital Signs Temp Pulse Resp BP Pulse Ox 11/19/20 13:22 97.7 F 18 11/19/20 13:20 76 23 140/66 97 11/19/20 13:17 75 21 122/59 L 97 Recovery Score Activity: Moves 4 extremities Respiration: Deep Breath/Cough Circulation: +/-20% PreAnes Value Consciousness: Fully Awake Oxygen Saturation: O2 needed for >90% Discharge Sedation Level of Care: Fast Track Phase II Post Sedation Plan On clinical assessment, the patient appears to have tolerated the sedation without complications. Patient is recovering as anticipated. Patient will continue to be monitored by nursing and may be discharged when sedation discharge criteria are met per below protocol. Upon Completions of procedure up to 15 minutes continue every 5 minute vital signs and the P.A.R. score; then discharge to a Phase I or Fast Track to Phase II per the following guidelines: * Discharge Patient to appropriate Phase II area if PAR is 8 or greater or return to pre- procedure baseline. The post - procedure orders will be as directed. * If PAR score is less than 8 or not return to pre-procedure baseline then patient will follow Phase I monitoring till PAR is reached for Phase II. The Phase I may be done in procedure room or may call to secure a Phase I area. * If naloxone or flumazenil are used for reversal, hold in Phase I for continued monitoring from when last reversal dose was given for a minimum of 60 minutes or longer pending the nurse and/or physician discretion of patient condition before discharge to Phase II. Please call the Sedation Physician to re-evaluate and complete post-note for discharge to Phase II area. Do NOT discharge from procedure sedation or Phase 1 until post- sedation evaluation note is complete by procedure /sedation MD Sedation Discharge Instructions to be given to the patient at discharge to home.
[2020-11-19] MEDS ORDERED: ACETAMINOPHEN 325 MG TAB PO PRN (14:28)
[2020-11-19] MEDS ORDERED: NITROGLYCERIN SL 0.4 MG/TAB TAB SL PRN (14:28)
[2020-11-19 14:30] LABS: Albumin Globulin Ratio 0.9 (0.9-2); Bilirubin,Total 0.7 mg/dl (0.2-1); Creatine Kinase MB 3.4 ng/ml (0.5-3.6); Total Protein 7.5 gm/dl (6.4-8.2); Troponin I 0.171 ng/ml (0-0.045)
[2020-11-19] MEDS ORDERED: ICU PROTOCOL FOR HYPERGLYCEMIA PRN (14:34)
--- NOTE | 2020-11-19 14:55 | Cardiac Catheterization ---
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 Cardiac Status Clinical evaluation leading to the procedure CAD Presenation: STEMI Anginal Classification: CCS IV Heart Failure: No Cardiogenic Shock within 24 Hours: No Cardiac Arrest within 24 Hours: No Imaging Studies Past 6 Months: No Stress Studies Past 6 Months: No Diagnostic Physicians Name: Bob Chandler MD Status: Emergency Closure Device Percutaneous Entry Location: Radial Closure Device: Radial Band Recommendations: PCI without planned CABG PCI Indication: Immediate PCI for STEMI Lesion Segment Name: Mid RCA Culprit Artery: Yes Stenosis Prior to Rx (%): 100 Chronic Total Occlusion: No IVUS: No FFR: No Pre-Procedure SEEMA Flow: 0 Previously Treated Lesion: No Lesion Complexity: Non-High/Non-C Lesion Length (mm): 20 Thrombus Present: Yes Bifurcation Lesion: No Guidewire Across Lesion: Stenosis Post-Procedure (%): 0 Post-Procedure SEEMA Flow: 3 Devices(s) Deployed: Yes Yes Intraprocedure Events Significant Disection: No Perforation: No Cardiac Cath Procedure Full Procedure Date November 19, 2020 Pre-Procedure Diagnosis Pre-Procedure Diagnosis: STEMI AUC Score AUC Score: 9 Post-Procedure Diagnosis Post-Procedure Diagnosis: Severe CAD, Successful PCI and Normal Intracardiac Pressures Procedure(s) Performed Procedure(s) Performed: Coronary Angiography, Left Heart Cath and Drug Eluting Stent Tailor Garment Fitter Bob Chandler MD Vascular Surgeon(s) Maurisio Estimated Blood Loss Estimated Blood Loss: 15 Medication(s) Medication(s): Fentanyl, Heparin, Integrilin, Lidocaine 1%, Nicardipine, Nitroglycerin and Versed Medication(s): Ticagrelor Summary of Findings Indication: STEMI/Heart Alert Access: 6 Fr right radial artery Catheters: [employer] left 3.5 guide Findings: LM -small, short, without significant disease LAD -small caliber, 70 to 80% proximal stenosis at takeoff of first septal. Remainder of vessel without significant disease. Ramusdiffuse 40 to 50% proximal to mid disease Circumflex -small, nondominant, no significant disease RCA -dominant, medium caliber, mild proximal disease prior to 100% earlymid acute occlusion. LVEDP -17 -- PCI -- Antithrombotic therapy: Heparin, Integrilin, ticagrelor Procedure: RCA cannulated with [employer] left 3.5 guide BMW wire passed across lesion into distal vessel Mid RCA lesion predilated with 2.5 compliant balloon Dilated lesion stented with 2.75 x 28 mm Xience drug-eluting stent Stent post-dilated with 3.0 noncompliant balloon IC vasodilators administered for spasm Questionable residual thrombus in distal aspect of stent. Redilated with 3.0 NC to high atmospheres. Given IC Integrilin bolus. Post procedure SEEMA 3 flow, stent well expanded with minimal residual stenosis and no apparent cardiac complications. Arterial Closure: TR band Summary: 1. Inferolateral STEMI/100% acute earlymid RCA occlusion 2. Moderate to severe non-culprit coronary artery disease -70 to 80% small proximal LAD 40 to 50% proximal to mid ramus 3. Normal intracardiac filling pressure 4. Successful PCI of proximal to mid RCA with single drug-eluting stent (2.75 x 28 mm Xience; postdilated with 3.0 NC). Recommendations: Admit to ICU for continued monitoring Loaded with ticagrelor 180 mg in ED Continue dual-antiplatelet therapy for at least 1 year. Trend troponins until peak, Check Echo Uptitrate beta-kamron/ARB as BP allows High-dose statin Consult cardiac Rehab We will consider PCI of small proximal LAD pending clinical course. Hemodynamics Rest Ao:: 145/57 Final Ao: 127/50/85 LV: 120/17 Recommendations Recommendations: PCI without planned CABG Specimens Specimens: None Radiation Exposure (mGy) 645 Contrast (mls) 95 Fluids (cc crystalloids) Fluids (cc crystalloids): 100 Drains Drains: None Anesthesia Moderate [id number] Procedural Complication(s) None Disposition ICU I attest to the content of the Intraoperative Record and any orders documented therein. Any exceptions are noted below. [facility] Card Cath Procedure Codes Cardiac Catheterization Procedure 1: Cardiovascular Cath Procedures: 16087 Coronaries and LHC (+/-LV) Moderate Sedation Procedure 1: Sedation/Anesthesia: 15806 Mod Sedation by the same physician;Init15 Min Child Age 5 & Up Procedure 2: Sedation/Anesthesia: 34695 Mod Sedation by the same physician; Ea [id number] Minutes Stenting Procedure 1: Cardiovascular Stent Procedures: 22080 Perc transluminal revascularization of acute sub/total occl, aMI PG Care Time/CCT Total # of Minutes Spent Total Time Spent with Patient: Total time spent is greater than 50% in coordination of care (as documented) at patient's floor/unit and/or counseling patient:
[2020-11-19] MEDS ORDERED: SODIUM CHLORIDE 0.9% 1000ML 1,000 ML IV SCH (15:30)
--- NOTE | 2020-11-19 15:33 | Critical Care Consultation ---
Date of Consultation November 19, 2020 Assessment & Plan (1) ST elevation (STEMI) myocardial infarction involving right coronary artery: Reason Critically Ill: 80 year old female who presented en-route via EMS as a heart alert with w/ atypical angina, ecg w/ anterolateral ST elevations, trop of 0.171. She is in the ICU for management status post PCI with CT. Neuro - [facility] ICU: negative Cardiac - RCA STEMI Cardiac cath: 1. Inferolateral STEMI/100% acute earlymid RCA occlusion 2. 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 Medical regimen per interventional cardiology: DAPT x 1 year. Atorvastatin increased to 40mg daily. Metoprolol tartrate PO 12.5mg PO BID. TTE: Normal LV systolic function. EF 60-65. Small area of hypokinesis of distal inferior wall. Mild concentric LVH. HTN Continue home losartan. HLD Atorvastatin 40mg daily as above. Fasting lipid profile in AM. Respiratory - No hx of respiratory disease. Patient is saturating well on room air. GI - HH diet. RENAL/LYTES - No significant electrolyte derangement. NSS 100mL/hr. Replace lytes as needed. - No concerns at this time. Protonix 40 PO qAM. ENDO - No hx of DM or thyroid disease. A1C in AM. HEME - Stable H&H. Monitor. ID - No concerns for infection. LINES/IV ACCESS - L PIV and R radial TR band DVT PROPHYLAXIS - SCDs for now CODE: full DISPO: ICU (2) Status post percutaneous transluminal angioplasty (HARP MAKER) with stent placement: (3) GERD (gastroesophageal reflux disease): (4) Hyperlipidemia: (5) Hypertension: Supervising Physician Co-Signing Physician Notes Dr. Lebron was the resident-physician during care of patient. I separately evaluated patient for mena portions of the history and the exam. I was present during the critical portion of medical decision making, and I discussed the case with the resident. I generally agree with the findings and plan except for any additions/exceptions noted. Patient seen and examined at bedside. No acute distress. Patient is s/p stent placement in the RCA The time of examination patient denied any chest pain, no shortness of breath. No nausea or vomiting She stated she is feeling much better She just had her dinner Constitutional: No acute distress HEENT: EOMI, PERRLA Respiratory system: Good air entry bilaterally, no wheeze, no rhonchi, no crackles CVS: S1-S2 positive, no murmurs or gallops Abdomen: Soft, nontender, nondistended, positive bowel sounds x4 Extremities: +2 pulses bilaterally radialis/ dorsalis pedis, no cyanosis, no edema Neuro: Awake alert oriented x3 Psych: Normal mood and affect G/U: No Petty --Prophylaxis VTE: IPC's GI: Protonix Lines: Peripheral Diet: Cardiac Plan: Continue with dual antiplatelet therapy Continue with statin and beta-kamron Trend troponin and EKG Please note the above document was generated using voice recognition software. It may contain grammatical, syntax or spelling errors.Any formal questions or concerns about the content, text or information contained within the body of this dictation should be directly addressed to the provider for clarification. History of Present Illness Reason for Consultation: STEMI status post LABORATORY AIDE and stent Requesting Physician: Dr. Bautista Rehman Attending Physician: Dr. Jersey Lundberg History of Present Illness Pam Amor is a 80 y/o F former smoker (x 2 years) w/ PMHx of GERD, HTN, HLD, obesity, chronic mid-back pain and osteoarthritis who presented w/ 9/10 intensity mid chest pain at 11:30 AM today while she was trimming shrubbery in her yard. This was accompanied by nausea and diaphoresis; she did not feel short of breath. She had some mid-back pain prior to this, but denies any radiation. Patient has not had this chest pain in the past. The pain did not migrate locations and there was no associated arm/jaw pain or paresthesias. Sitting down decreased the intensity to a 7/10 after which she returned to gardening. The pain worsened again, so she called her daughter (~12:30pm) who then called EMS. At EMS arrival, patient was reportedly noted to have appeared slightly dyspneic. Patient states EMS gave her 4x baby ASA which helped the pain. She believes she was not given nitro. Heart alert was called en-route by EMS and patient was sent to denture laboratory technician upon arrival. Denies DM, pulmonary disease, kidney disease, VTE, or non- dermatological cancer. S/p the PCI, patient's chest pain has resolved and not returned. Allergies Allergy/AdvReac Type Severity Reaction Status Date / Time cimetidine [From Tagamet] Allergy Mild RASH Verified 08/25/19 07:18 Home Medications Medication Instructions Recorded Confirmed Type multivitamin,at-[id number] 1 tab PO QDL 03/28/19 01/04/20 History (Complete Multivitamin) omega-3 fatty acids 1,000 mg 1,000 mg PO QDD 03/28/19 01/04/20 History capsule (Fish Oil Concentrate) omeprazole 20 mg capsule,delayed 20 mg PO DIRECTED 03/28/19 01/04/20 History release atorvastatin 10 mg tablet 10 mg PO PM 04/04/19 01/04/20 History calcium carbonate-vitamin D3 600 1 cap PO QDL 04/04/19 01/04/20 History mg calcium-200 unit capsule (Calcium 600 + D(3)) losartan 25 mg tablet 25 mg PO QAM 04/04/19 01/04/20 History vit C 250 mg-vit E 90 mg-zinc 40 1 tab PO QDL 04/04/19 01/04/20 History mg-copper 1 kt-ekulum-[id number] capsule (PreserVision AREDS-2) aspirin 81 mg tablet,delayed 81 mg PO BID 42 Days #0 tab 05/09/19 01/04/20 Rx release (Adult Low Dose Aspirin) Patient History Medical History GERD (gastroesophageal reflux disease) controlled Hx of skin cancer, basal cell Hx of squamous cell carcinoma of skin Hyperlipidemia Hypertension Obesity Osteoarthritis 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) Surgical History History of esophagogastroduodenoscopy (EGD) History of laser refractive surgery History of Mohs micrographic surgery for skin cancer x2 History of tonsillectomy History of tooth extraction all upper teeth History of total right knee replacement (~04/2019) Hx of cataract extraction Hx of colonoscopy Hx of nasal septoplasty Hx of tubal ligation Family History Mother Family history of diabetes mellitus Sister Family history of diabetes mellitus Other No family history of adverse response to anesthesia Social History Smoking Status: Former smoker Second Hand Exposure: No; Do You Dip or Chew Tobacco: No; Tobacco Cessation Education Requested by Patient: No Hx Alcohol Use: Yes (rarely) Alcohol type: wine Hx Substance Use: No Preferred Language: Estonian Communication Ability: Effective Chief Clinical Officer Required: No Beliefs That Will Affect Care: None marital status: Current Living Situation: Spouse Other Information That Helps Us Care for You: No Feels Safe at Home: Yes Safety Concerns: Feels Safe At This Time Assistive Devices: Denture - Upper Assistive Devices Comment: with patient Review of Systems Review of Systems: Constitutional: Denies fever, chills Eyes: Denies blurry vision, vision changes ENT: Denies sore throat, sinus pain Cardiovascular: Denies palpitations. No current chest pain. Respiratory: Denies shortness of breath Gastrointestinal: Denies abdominal pain, constipation. + diarrhea x 1 episode. + emesis x 1. Genitourinary: Denies urinary symptoms including dysuria Musculoskeletal: Denies weakness, muscle aches/pain, joint aches/pain Neurological: Denies headache, numbness, tingling, focal weakness Physical Exam Physical Exam: General: Grossly A&O. NAD. Cooperative. HEENT: Atraumatic, normocephalic. EOMI. PERRL. + bilateral carotid bruits. Moist mucous membranes. Wearing dentures. Pulm: CTAB, slightly decreased (symmetric bilaterally) air entry diffusely, most notable at bases. -wheezes, -rales, -rhonchi. No respiratory distress. Cardiac: RRR, -mrg. Radial pulses intact and symmetrical. Radial and DP pulses 2+ bilaterally. Trace BLE. Abdominal: Nontender, nondistended, soft. Neuro: CN II-XII intact. 5+/5 strength of extremities. Integumentary: PIV and TR band w/o surrounding erythema. Results & Data Results & Data ([facility]) Vital Signs (Past 12 Hours) Vital Signs Temp Pulse Pulse Resp BP BP Pulse Ox 11/19/20 14:45 81 16 108/45 L 91 11/19/20 14:28 84 16 114/43 L 92 11/19/20 13:22 36.5 C 18 11/19/20 13:20 76 23 140/66 97 11/19/20 13:17 75 21 122/59 L 97 Laboratory Results Cardiac Enzymes 11/19/20 11/19/20 Range/Units 13:20 13:20 AST 16 (15-37) U/L CK-MB (CK-2) 3.4 (0.5-3.6) ng/ml Troponin I Cancelled 0.171 H* Coagulation 11/19/20 Range/Units 13:20 PT 10.5 (9.0-12.0) Seconds APTT 27.3 (21.0-31.0) Seconds CBC 11/19/20 Range/Units 13:20 WBC 9.71 (4.8-10.8) K/uL RBC 4.39 (4.2-5.4) M/uL Hgb 12.4 (12.0-16.0) g/dL Hct 39.9 (37-47) % Plt Count 282 (130-400) K/uL Neut # (Auto) 5.65 (1.4-6.5) K/uL Lymph # (Auto) 3.37 (1.2-3.4) K/uL [place] # (Auto) 0.61 H (0.11-0.59) K/uL Eos # (Auto) 0.04 (0-0.5) K/uL Baso # (Auto) 0.02 (0-0.2) K/uL Comprehensive Metabolic Panel 11/19/20 Range/Units 13:20 Sodium 138 (136-145) mmol/L Potassium 3.9 (3.5-5.1) mmol/L Chloride 103 (98-107) mmol/L Carbon Dioxide 26 (21-32) mmol/L BUN 17 (7-18) mg/dl Creatinine 1.04 (0.6-1.2) mg/dl Glucose 144 H (70-99) mg/dl Calcium 9.5 (8.5-10.1) mg/dl AST 16 (15-37) U/L ALT 16 (12-78) U/L Alkaline Phosphatase 73 (45-117) U/L Total Protein 7.5 (6.4-8.2) gm/dl Albumin 3.5 (3.4-5.0) gm/dl Intake and Output 11/19/20 11/19/20 11/19/20 06:59 14:59 22:59 Intake Total 100 / 100 Balance 100 / 100 Intake: Oral 100 / 100 Other: Weight 67.1 kg Weight Measurement Method Built in [facility] Patient Weight 11/20/20 06:59 Weight 67.1 kg Resident Activity Tracking Resident Involvement: Resident Care Provided Care Provided: Adult Hospital Medicine
[2020-11-19] MEDS ORDERED: INFLUENZA VACCINE HIGH DOSE PF 65+ 0.7 ML SYR IM ONE (15:52)
--- NOTE | 2020-11-19 16:47 | History & Physical Report ---
Date of Service November 19, 2020 Assessment & Plan (1) ST elevation (STEMI) myocardial infarction involving right coronary artery: Plan: Attending: Dr. Rehman Impression: 80-year-old female with acute chest pain today. Arrived at the emergency department by ambulance and found to have ST elevated LA. Taken to catheterization lab and received drug-eluting stent to the RCA. Transferred to the intensive care unit for overnight observation. TR band in place. Patient with no loss of consciousness and no CPR performed Successful placement of drug-eluting stent to RCA by Dr. Chandler Monitor in the intensive care unit overnight TR band still in place -deflate and remove per protocol Advised patient that most likely she will need beta-kamron, aspirin, clopidogrel, and may require higher dose of atorvastatin Follow serial troponin Discharge plan per Dr. Chandler (2) Hypertension: Plan: Generally controlled as an outpatient with losartan Hemodynamically stable Further medical management per Dr. Chandler (3) Hyperlipidemia: Plan: Patient on atorvastatin 10 mg daily Previously was on a statin that caused achiness in the legs No history of rhabdomyolysis with previous agents (4) GERD (gastroesophageal reflux disease): Plan: Patient was on omeprazole chronically as an outpatient but this was stopped secondary to nausea and vomiting We will place patient on pantoprazole while inpatient and then discontinue PPI as an outpatient Further management per outpatient PCP (5) DVT prophylaxis: Plan: Chemical prophylaxis per cardiology Patient received loading dose and ongoing doses of clopidogrel SCDs ordered Please refer to Dr. Rehman's addendum for further recommendations and corrections Admission and Anticipated Discharge Date Admission Date: November 19, 2020 History of Present Illness Primary Care Provider: Tracy Flannery DO Attending: Dr. Rehman This is a 80-year-old female with a past medical history including hyperlipidemia, chin, GERD, osteoarthritis, arthrofibrosis of knee, partial blindness. The patient was at home doing gardening when she began having chest pain. She rates the initial chest pain as 8-9 out of 10. She sat down and rested for a while and states that the pain reduced to a 7 out of 10 so she went back to gardening. The pain continued and elevated back up to an 8 or 9 so she went inside and called for help. The patient was brought to the emergency department and found to have EKG changes. A heart alert was called and patient was taken to the catheterization clinic urgently and found to have 100% in-stent blockage of the RCA. She received a drug-eluting stent and was transferred to the intensive care unit for postoperative management. The patient states that she has minimal risk factors. She only smoked for 2 or 3 years in her late teens early 20s. She has no other risk factors. She has no first-degree relatives with heart disease. She does report that she had some nausea at the time of her chest pain. She has not had chest pain or cardiac issues in the past. Patient has no other acute complaints. Allergies Allergy/AdvReac Type Severity Reaction Status Date / Time cimetidine [From Tagamet] Allergy Mild RASH Verified 08/25/19 07:18 Home Medications Medication Instructions Recorded Confirmed Type multivitamin,ds-uzyq-vexcquzl 1 tab PO QDL 03/28/19 01/04/20 History (Complete Multivitamin) omega-3 fatty acids 1,000 mg 1,000 mg PO QDD 03/28/19 01/04/20 History capsule (Fish Oil Concentrate) omeprazole 20 mg capsule,delayed 20 mg PO DIRECTED 03/28/19 01/04/20 History release atorvastatin 10 mg tablet 10 mg PO PM 04/04/19 01/04/20 History calcium carbonate-vitamin D3 600 1 cap PO QDL 04/04/19 01/04/20 History mg calcium-200 unit capsule (Calcium 600 + D(3)) losartan 25 mg tablet 25 mg PO QAM 04/04/19 01/04/20 History vit C 250 mg-vit E 90 mg-zinc 40 1 tab PO QDL 04/04/19 01/04/20 History mg-copper 1 fv-gyplxv-oxaxqz capsule (PreserVision AREDS-2) aspirin 81 mg tablet,delayed 81 mg PO BID 42 Days #0 tab 05/09/19 01/04/20 Rx release (Adult Low Dose Aspirin) Past Med/Surg History Medical History GERD (gastroesophageal reflux disease) controlled Hx of skin cancer, basal cell Hx of squamous cell carcinoma of skin Hyperlipidemia Hypertension Obesity Osteoarthritis 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) Surgical History History of esophagogastroduodenoscopy (EGD) History of laser refractive surgery History of Mohs micrographic surgery for skin cancer x2 History of tonsillectomy History of tooth extraction all upper teeth History of total right knee replacement (~04/2019) Hx of cataract extraction Hx of colonoscopy Hx of nasal septoplasty Hx of tubal ligation Family History Mother Family history of diabetes mellitus Sister Family history of diabetes mellitus Other No family history of adverse response to anesthesia Social History Smoking Status: Former smoker Second Hand Exposure: No; Do You Dip or Chew Tobacco: No; Tobacco Cessation Education Requested by Patient: No Hx Alcohol Use: Yes (rarely) Alcohol type: wine Hx Substance Use: No Preferred Language: Russian Communication Ability: Effective Casting 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 Bilateral carotid bruits left worse than right LUNGS: CTA B/L, no wheezes, rales or rhonchi HEART: Regular, rate controlled. Patient has no murmurs gallops or rubs appreciated. ABDOMEN: Soft, NT, ND, BS Present EXTREMITIES: No LE edema, pedal pulses intact and equal bilaterally NEURO: A&OX3. Pupils equal round and reactive to light. Tongue is midline. Cerebellar function is intact. Strength is equal and appropriate bilateral upper and lower extremities. Cranial nerves II through XII appear to be grossly intact without focal deficit. Results & Data Results & Data ([facility]) Vital Signs (Past 12 Hours) Vital Signs Temp Pulse Pulse Resp BP BP Pulse Ox 11/19/20 15:51 74 17 127/53 L 100 11/19/20 15:36 77 22 125/51 L 98 11/19/20 14:45 81 16 108/45 L 91 11/19/20 14:28 84 16 114/43 L 92 11/19/20 13:22 36.5 C 18 11/19/20 13:20 76 23 140/66 97 11/19/20 13:17 75 21 122/59 L 97 Laboratory Results 11/19/20 13:20 11/19/20 13:20 11/19/20 11/19/20 13:20 13:20 Troponin I Cancelled 0.171 H* Code Status & VTE Plan Code Status Patient desires to be a level V: DO NOT INTUBATE DO NOT RESUSCITATE VTE Prophylaxis Plan VTE Prophylaxis will be ordered: Yes Supervising Physician Co-Signing Physician Notes I personally saw and examined the patient. I verified all mena points and agree with Marv Vance PA-C with the following exceptions and/or additions: 80 year old female admission for STEMI. Patient seen after cardiac catheterization. I discussed the case with Dr Chandler. Patient seen in ICU and is currently chest pain free with TR band in place. O/E WN/WD, no acute distress, HS 1+2, no murmurs, Chest CTAB A/P STEMI - ASA, Brillinta, Metoprolol, Losartan, Atorvastatin, s/p x1 CT to RCA. Appreciate ICU and cardiology co-management. Lipid profile and HbA1C with AM labs PG Care Time/CCT Total # of Minutes Spent Total Time Spent with Patient: Total time spent is greater than 50% in coordination of care (as documented) at patient's floor/unit and/or counseling patient: 60 minutes Coding Level of Care Code 44889 Initial Inpt Care Lvl [address] elevation (STEMI) myocardial infarction involving right coronary artery I21.11 Hypertension I10 Hyperlipidemia E78.5 GERD (gastroesophageal reflux disease) K21.9 DVT prophylaxis Z29.9 Time Spent (min) 60
--- NOTE | 2020-11-19 16:47 | XCELERA ---
[id number]
--- NOTE | 2020-11-19 16:53 | Emergency Department Note ---
History of Present Illness General Chief complaint: Heart Alert Source: patient Mode of arrival: EMS History of Present Illness Provider complaint: Chest pain Onset (ago): hour(s) Location: chest and left Radiation: non-radiation Pain Consistency: + constant Maximum Pain Intensity: 7 Quality: + other (Pressure) Relieved By: + medication (IV fentanyl) Associated symptoms: + diaphoresis and + nausea/vomiting; no cough, no fever/chills or no shortness of breath This is a 80-year-old female with history of hypertension presenting with chest pain. The patient states that she was pruning her bushes when it started. She states it started about an hour prior to arrival. She describes it as a pressure on the left side of her chest. It does not radiate. It is associated with diaphoresis and an episode of vomiting. It is better after she received IV fentanyl in the ambulance. Initially was a 10 out of 10 in severity and now it is a 8 out of 10. She denies any history of cardiac disease but does have a history of hypertension. She denies any recent illness, fever, cough or cold symptoms, shortness of breath, abdominal pain, diarrhea, leg swelling or pain or urinary symptoms. Home Medications Medication Instructions Recorded Confirmed Type multivitamin,[id number] 1 tab PO QDL 03/28/19 01/04/20 History (Complete Multivitamin) omega-3 fatty acids 1,000 mg 1,000 mg PO QDD 03/28/19 01/04/20 History capsule (Fish Oil Concentrate) omeprazole 20 mg capsule,delayed 20 mg PO DIRECTED 03/28/19 01/04/20 History release atorvastatin 10 mg tablet 10 mg PO PM 04/04/19 01/04/20 History calcium carbonate-vitamin D3 600 1 cap PO QDL 04/04/19 01/04/20 History mg calcium-200 unit capsule (Calcium 600 + D(3)) losartan 25 mg tablet 25 mg PO QAM 04/04/19 01/04/20 History vit C 250 mg-vit E 90 mg-zinc 40 1 tab PO QDL 04/04/19 01/04/20 History mg-copper 1 [id number] capsule (PreserVision AREDS-2) aspirin 81 mg tablet,delayed 81 mg PO BID 42 Days #0 tab 05/09/19 01/04/20 Rx release (Adult Low Dose Aspirin) Allergies Allergy/AdvReac Type Severity Reaction Status Date / Time cimetidine [From Tagamet] Allergy Mild RASH Verified 08/25/19 07:18 Past Med/Surg History Medical History GERD (gastroesophageal reflux disease) controlled Hx of skin cancer, basal cell Hx of squamous cell carcinoma of skin Hyperlipidemia Hypertension Obesity Osteoarthritis 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) Surgical History History of esophagogastroduodenoscopy (EGD) History of laser refractive surgery History of Mohs micrographic surgery for skin cancer x2 History of tonsillectomy History of tooth extraction all upper teeth History of total right knee replacement (~04/2019) Hx of cataract extraction Hx of colonoscopy Hx of nasal septoplasty Hx of tubal ligation Family History Mother Family history of diabetes mellitus Sister Family history of diabetes mellitus Other No family history of adverse response to anesthesia Social History Smoking Status: Former smoker Second Hand Exposure: No; Do You Dip or Chew Tobacco: No; Tobacco Cessation Education Requested by Patient: No Hx Alcohol Use: Yes (rarely) Alcohol type: wine Hx Substance Use: No Preferred Language: Haitian Communication Ability: Effective Academic Registrar Required: No Beliefs That Will Affect Care: None marital status: Current Living Situation: Spouse Other Information That Helps Us Care for You: No Feels Safe at Home: Yes Safety Concerns: Feels Safe At This Time Assistive Devices: Denture - Upper Assistive Devices Comment: with patient Review of Systems See HPI for pertinent positives & negatives. and A total of 10 systems reviewed and were otherwise negative Physical Exam Vital Signs Vital Signs - 24 hr 11/19/20 13:17 11/19/20 13:20 11/19/20 13:22 Temperature 36.5 C Temperature Source Oral Pulse Rate 75 76 Pulse Rate [Apical] Pulse Rate from SpO2 Sensor 74 81 Pulse Rhythm [Apical] Pulse Strength [Apical] Respiratory Rate 21 23 18 Respiratory Effort / Characteristics Non-Labored Spontaneous Respiratory Depth Normal Respiratory Pattern Regular Blood Pressure 122/59 L 140/66 Blood Pressure [Left Arm] Blood Pressure Mean 80 90 Blood Pressure Mean [Left Arm] Blood Pressure Position Sitting Blood Pressure Position [Left Arm] Pulse Oximetry 97 97 Oxygen Delivery Method Room Air Room Air Room Air Sepsis Recent Fever Within 48 Hours No Sepsis New/Unexplained Change in Mental Status No Sepsis Action Taken by Nursing No Action Required 11/19/20 13:25 11/19/20 14:28 Temperature Temperature Source Pulse Rate Pulse Rate [Apical] 84 Pulse Rate from SpO2 Sensor Pulse Rhythm [Apical] Regular Pulse Strength [Apical] Normal Respiratory Rate 16 Respiratory Effort / Characteristics Non-Labored Spontaneous Respiratory Depth Normal Respiratory Pattern Blood Pressure Blood Pressure [Left Arm] 114/43 L Blood Pressure Mean Blood Pressure Mean [Left Arm] 66 Blood Pressure Position Blood Pressure Position [Left Arm] Sitting Pulse Oximetry 92 Oxygen Delivery Method Room Air Room Air Sepsis Recent Fever Within 48 Hours Sepsis New/Unexplained Change in Mental Status Sepsis Action Taken by Nursing Constitutional: Vital signs reviewed. Eyes: Pupils are equal round reactive to light. Conjunctiva are noninjected. ENT: Pharynx is clear without erythema or exudate. Mucous membranes are moist. Neck supple without meningeal signs. Respiratory: Clear to auscultation bilaterally. Breath sounds are equal bilaterally. Cardiovascular: Regular rate and rhythm. No rubs or gallops. GI: Soft, nondistended and nontender. Bowel sounds are present. Musculoskeletal: No peripheral edema. No lower extremity tenderness. Integumentary: No cyanosis. or jaundice. Neurological: The patient is awake and alert. No focal deficits. Psychiatric: Normal affect. Not anxious appearing. Course Administered Medications Sodium Chloride (Nss 1000ml) 1,000 mls @ 100 mls/hr IV .Q10H BARRY Stop: 11/19/20 22:59 Last Admin: 11/19/20 15:20 Dose: 100 mls/hr Documented by: [id number] Discontinued Medications Eptifibatide (Eptifibatide 2 Mg/Ml 10 Ml Vial (Director Of [employer] Operations Use Only)) Confirm Administered Dose 20 mg IV .STK-MED ONE Stop: 11/19/20 14:08 Last Admin: 11/19/20 14:12 Dose: 6.2 ml Documented by: [id number] Eptifibatide (Eptifibatide 2 Mg/Ml 10 Ml Vial (Director Of [employer] Use Only)) Confirm Administered Dose 20 mg IV .STK-MED ONE Stop: 11/19/20 14:09 Last Admin: 11/19/20 14:13 Dose: 6.2 ml Documented by: [id number] Eptifibatide (Eptifibatide 2 Mg/Ml 10 Ml Vial (Director Of [employer] Use Only)) Confirm Administered Dose 20 mg IV .STK-MED ONE Stop: 11/19/20 14:21 Last Admin: 11/19/20 15:35 Dose: Not Given Documented by: [id number] Fentanyl Citrate (Fentanyl Citrate 100 Mcg/2 Ml Vial) Confirm Administered Dose 100 mcg .ROUTE .STK-MED ONE Stop: 11/19/20 13:33 Last Increment: 11/19/20 14:12 Dose: 50 mcg Documented by: [id number] Heparin Sodium (Porcine) (Heparin Sod (Porcine) 1000 Unit/Ml) Confirm Administered Dose 1,000 units .ROUTE .STK-MED ONE Stop: 11/19/20 13:14 Last Admin: 11/19/20 15:35 Dose: Not Given Documented by: [id number] Heparin Sodium (Porcine) (Heparin (Porcine) 1000 Unit/Ml 10 Ml ([employer] Of [employer] Use Only)) Confirm Administered Dose 10,000 units .ROUTE .ST-MED ONE Stop: 11/19/20 13:33 Last Admin: 11/19/20 14:13 Dose: 8,000 units Documented by: [id number] Heparin Sodium/Sodium Chloride (Heparin In Nss Infusion 1000 Unit/500 Ml (2 U/Ml) Bag) Confirm Administered Dose 3,000 units IV .STK-MED ONE Stop: 11/19/20 13:33 Last Admin: 11/19/20 15:35 Dose: Not Given Documented by: [id number] Midazolam HCl (Midazolam Hcl 1 Mg/Ml 2ml Vial) Confirm Administered Dose 2 mg .ROUTE .STK-MED ONE Stop: 11/19/20 13:32 Last Increment: 11/19/20 14:12 Dose: 1 mg Documented by: [id number] Nicardipine HCl (Nicardipine Hcl Inj 2.5 Mg/Ml 10 Ml Amp) Confirm Administered Dose 25 mg .ROUTE .STK-MED ONE Stop: 11/19/20 13:33 Last Admin: 11/19/20 15:35 Dose: Not Given Documented by: [id number] Nitroglycerin/Dextrose (Nitroglycerin/D5w 100mcg/Ml 20ml Syr) Confirm Administered Dose 2,000 mcg .ROUTE .STK-MED ONE Stop: 11/19/20 13:33 Last Admin: 11/19/20 15:35 Dose: Not Given Documented by: [id number] Ticagrelor (Ticagrelor 90 Mg Tab) Confirm Administered Dose 180 [facility] Stop: 11/19/20 13:14 Last Admin: 11/19/20 14:12 Dose: 180 mg Documented by: [id number] Critical Care Time Critical Care Time: Yes Total Critical Care Time: 32 I have personally spent approximately 32 minutes of critical care time in the direct management of this patient. This includes bedside care, interpretation of diagnostic studies, and testing, discussion with consultants, patient, and family members, and other required patient management activities. These minutes are in excess of all separately billable procedures. Medical Decision Making Differential Diagnosis STEMI, unstable angina, aortic aneurysm, GERD, pulmonary embolism Medical Records Attestation: I reviewed the patient's medical records. I did perform a limited focused review of portions of the patient's old chart on the electronic medical record. The patient has had no recent pertinent visits to this hospital. Home Medications Current Medication List: was personally reviewed by me Laboratory Data Attestation: I reviewed the patient's lab results. Result diagrams: 11/19/20 13:20 11/19/20 13:20 Lab Results 11/19/20 11/19/20 11/19/20 Range/Units 13:15 13:15 13:20 WBC (4.8-10.8) K/uL RBC (4.2-5.4) M/uL Hgb (12.0-16.0) g/dL POC Hgb (12.0-16.0) g/dl Hct (37-47) % POC Hct (37-47) % MCV (80-100) fL MCH (25-34) pg MCHC (32-36) g/dL RDW Std Deviation (36.4-46.3) fL RDW Coeff of Jesu (11.5-14.5) % Plt Count (130-400) K/uL MPV (7.4-10.4) fL Immature Gran % (Auto) % Neut % (Auto) % Lymph % (Auto) % Tucker % (Auto) % Eos % (Auto) % Baso % (Auto) % Neut # (Auto) (1.4-6.5) K/uL Lymph # (Auto) (1.2-3.4) K/uL Tucker # (Auto) (0.11-0.59) K/uL Eos # (Auto) (0-0.5) K/uL Baso # (Auto) (0-0.2) K/uL Immature Gran # (Auto) (0.00-0.02) K/uL PT (9.0-12.0) Seconds INR (0.9-1.1) APTT (21.0-31.0) Seconds PTT Ratio POC Sodium (135-144) mmol/L Sodium (136-145) mmol/L POC Potassium (3.3-5.0) mmol/L Potassium (3.5-5.1) mmol/L POC Chloride (101-112) mmol/L Chloride (98-107) mmol/L Carbon Dioxide (21-32) mmol/L POC Total CO2 (24-31) mmol/L Anion Gap (3-11) POC Anion Gap (16-25) mmol/L POC BUN (7-18) mg/dl BUN (7-18) mg/dl Creatinine (0.6-1.2) mg/dl POC Creatinine (0.6-1.3) mg/dl Est Cr Clr Drug Dosing ml/min Est GFR ( Amer) ml/min Est GFR (Non-Af Amer) ml/min BUN/Creatinine Ratio (10-20) Glucose (70-99) mg/dl POC Glucose (other) (70-99) mg/dl Calcium (8.5-10.1) mg/dl POC Ioniz Calcium Corona (1.12-1.32) mmol/l Magnesium (1.8-2.4) mg/dl Total Bilirubin (0.2-1) mg/dl AST (15-37) U/L ALT (12-78) U/L Alkaline Phosphatase (45-117) U/L Total Creatine Kinase (26-192) U/L CK-MB (CK-2) (0.5-3.6) ng/ml CK/CKMB % Calc (0-3.0) Troponin I Cancelled Total Protein (6.4-8.2) gm/dl Albumin (3.4-5.0) gm/dl Globulin (2.5-4.0) gm/dl Albumin/Globulin Ratio (0.9-2) Lipase (73-393) U/L COVID-19 [email or web address] SARS-CoV-2, RNA, NAAT NEGATIVE (NEGATIVE) 11/19/20 11/19/20 11/19/20 Range/Units 13:20 13:20 13:20 WBC 9.71 (4.8-10.8) K/uL RBC 4.39 (4.2-5.4) M/uL Hgb 12.4 (12.0-16.0) g/dL POC Hgb (12.0-16.0) g/dl Hct 39.9 (37-47) % POC Hct (37-47) % MCV 90.9 (80-100) fL MCH 28.2 (25-34) pg MCHC 31.1 L (32-36) g/dL RDW Std Deviation 47.8 H (36.4-46.3) fL RDW Coeff of Jesu 14.3 (11.5-14.5) % Plt Count 282 (130-400) K/uL MPV 10.1 (7.4-10.4) fL Immature Gran % (Auto) 0.2 % Neut % (Auto) 58.2 % Lymph % (Auto) 34.7 % Tucker % (Auto) 6.3 % Eos % (Auto) 0.4 % Baso % (Auto) 0.2 % Neut # (Auto) 5.65 (1.4-6.5) K/uL Lymph # (Auto) 3.37 (1.2-3.4) K/uL Tucker # (Auto) 0.61 H (0.11-0.59) K/uL Eos # (Auto) 0.04 (0-0.5) K/uL Baso # (Auto) 0.02 (0-0.2) K/uL Immature Gran # (Auto) 0.02 (0.00-0.02) K/uL PT 10.5 (9.0-12.0) Seconds INR 1.0 (0.9-1.1) APTT 27.3 (21.0-31.0) Seconds PTT Ratio 1.0 POC Sodium (135-144) mmol/L Sodium 138 (136-145) mmol/L POC Potassium (3.3-5.0) mmol/L Potassium 3.9 (3.5-5.1) mmol/L POC Chloride (101-112) mmol/L Chloride 103 (98-107) mmol/L Carbon Dioxide 26 (21-32) mmol/L POC Total CO2 (24-31) mmol/L Anion Gap 9.0 (3-11) POC Anion Gap (16-25) mmol/L POC BUN (7-18) mg/dl BUN 17 (7-18) mg/dl Creatinine 1.04 (0.6-1.2) mg/dl POC Creatinine (0.6-1.3) mg/dl Est Cr Clr Drug Dosing 36.5 ml/min Est GFR ( Amer) 59.2 ml/min Est GFR (Non-Af Amer) 51.1 ml/min BUN/Creatinine Ratio 15.9 (10-20) Glucose 144 H (70-99) mg/dl POC Glucose (other) (70-99) mg/dl Calcium 9.5 (8.5-10.1) mg/dl POC Ioniz Calcium Corona (1.12-1.32) mmol/l Magnesium 2.3 (1.8-2.4) mg/dl Total Bilirubin 0.7 (0.2-1) mg/dl AST 16 (15-37) U/L ALT 16 (12-78) U/L Alkaline Phosphatase 73 (45-117) U/L Total Creatine Kinase 76 (26-192) U/L CK-MB (CK-2) 3.4 (0.5-3.6) ng/ml CK/CKMB % Calc 4.5 H (0-3.0) Troponin I 0.171 H* Total Protein 7.5 (6.4-8.2) gm/dl Albumin 3.5 (3.4-5.0) gm/dl Globulin 4.0 (2.5-4.0) gm/dl Albumin/Globulin Ratio 0.9 (0.9-2) Lipase 143 (73-393) U/L COVID-19 Eval Order SARS-CoV-2, RNA, NAAT (NEGATIVE) 11/19/20 Range/Units 13:27 WBC (4.8-10.8) K/uL RBC (4.2-5.4) M/uL Hgb (12.0-16.0) g/dL POC Hgb 12.9 (12.0-16.0) g/dl Hct (37-47) % POC Hct 38 (37-47) % MCV (80-100) fL MCH (25-34) pg MCHC (32-36) g/dL RDW Std Deviation (36.4-46.3) fL RDW Coeff of Jesu (11.5-14.5) % Plt Count (130-400) K/uL MPV (7.4-10.4) fL Immature Gran % (Auto) % Neut % (Auto) % Lymph % (Auto) % Tucker % (Auto) % Eos % (Auto) % Baso % (Auto) % Neut # (Auto) (1.4-6.5) K/uL Lymph # (Auto) (1.2-3.4) K/uL Tucker # (Auto) (0.11-0.59) K/uL Eos # (Auto) (0-0.5) K/uL Baso # (Auto) (0-0.2) K/uL Immature Gran # (Auto) (0.00-0.02) K/uL PT (9.0-12.0) Seconds INR (0.9-1.1) APTT (21.0-31.0) Seconds PTT Ratio POC Sodium 139 (135-144) mmol/L Sodium (136-145) mmol/L POC Potassium 4.0 (3.3-5.0) mmol/L Potassium (3.5-5.1) mmol/L POC Chloride 102 (101-112) mmol/L Chloride (98-107) mmol/L Carbon Dioxide (21-32) mmol/L POC Total CO2 25 (24-31) mmol/L Anion Gap (3-11) POC Anion Gap 17.0 (16-25) mmol/L POC BUN 15 (7-18) mg/dl BUN (7-18) mg/dl Creatinine (0.6-1.2) mg/dl POC Creatinine 1.0 (0.6-1.3) mg/dl Est Cr Clr Drug Dosing ml/min Est GFR ( Amer) ml/min Est GFR (Non-Af Amer) ml/min BUN/Creatinine Ratio (10-20) Glucose (70-99) mg/dl POC Glucose (other) 146 H (70-99) mg/dl Calcium (8.5-10.1) mg/dl POC Ioniz Calcium Corona 1.20 (1.12-1.32) mmol/l Magnesium (1.8-2.4) mg/dl Total Bilirubin (0.2-1) mg/dl AST (15-37) U/L ALT (12-78) U/L Alkaline Phosphatase (45-117) U/L Total Creatine Kinase (26-192) U/L CK-MB (CK-2) (0.5-3.6) ng/ml CK/CKMB % Calc (0-3.0) Troponin I Total Protein (6.4-8.2) gm/dl Albumin (3.4-5.0) gm/dl Globulin (2.5-4.0) gm/dl Albumin/Globulin Ratio (0.9-2) Lipase (73-393) U/L COVID-19 Eval Order SARS-CoV-2, RNA, NAAT (NEGATIVE) ECG Data Attestation: I personally reviewed and interpreted this ECG as follows: Indication: + chest pain Rate (beats per minute): 67 Rhythm: + normal sinus ECG [place]: + Normal ECG ST segments: + ST depression and + ST elevation (Anterolateral) ECG Findings: no PVCs MDM Narrative I did take prehospital medical command for the patient. I did review the prehospital EKG which showed significant ST elevations consistent with STEMI in the inferior leads. There are ST depressions in the septal leads as well as slight elevation in the anterior lateral leads. Rhythm is normal sinus at a rate of 68. I did immediately call a heart alert. I recommended that they treat the patient with IV fentanyl and Zofran and avoid nitrates. She was given aspirin in the ambulance as well. I did evaluate the patient immediately on arrival as noted above. She is now complaining of 8 out of 10 chest pain which is improved from earlier. I did place an order for continuous cardiac monitoring. The monitor showed normal sinus rhythm at a rate of 70 bpm. I did order and personally review the patient's 12-lead EKG as described above. She appears now to have a anterior lateral STEMI with significant improvement of ST elevations in the inferior leads compared to prehospital EKG. I did discuss this with the patient. Dr. Chandler did evaluate the patient in the emergency department. She was started on heparin and Brilinta and immediately taken to the cardiac Director Of Retail Operations. I did discuss the diagnosis with the patient's daughter and over the telephone for the patient's bilateral request. I did order and review the patient's blood work as noted in the electronic medical record. CBC is unremarkable without leukocyte anemia. Electrolytes are unremarkable. Troponin is elevated at 0.17. Impression & Plan ST elevation (STEMI) myocardial infarction involving right coronary artery Discharge Plan Visit Data Chief Complaint: Heart Alert ED Provider: [facility] Discharge Problem: ST elevation (STEMI) myocardial infarction involving right coronary artery Patient Disposition: Admitted As Inpatient Discharge Instructions Interventions: ED Discharge Assessment Last Done: 11/19/20 13:25
[2020-11-19] MEDS ORDERED: PANTOprazole 40 MG TAB PO SCH (17:15)
--- NOTE | 2020-11-19 18:32 | Billing Data ---
Date of Service November 19, 2020 Coding Level of Care Code 58675 Initial Inpt Care Lvl 3
[2020-11-19] MEDS: METOPROLOL TARTRATE 25 MG TAB PO SCH (20:10)
[2020-11-19 20:57] LABS: Appearance Urine Clear (Clear); Bilirubin Urine Negative (Negative); Blood Urine Negative (Negative); Color Urine Yellow; Glucose Urine UA Negative (Negative); Ketones Urine 2+ (Negative); Leukocyte Esterase Urine Negative (Negative); Nitrite Urine Negative (Negative); Protein Urine Negative (Negative); Specific Gravity Urine > 1.045 (1.000-1.030); Urobilinogen Urine Negative (Negative)
[2020-11-20 02:25] LABS: Basophils # (auto) 0.01 K/uL (0-0.2); Basophils % (auto) 0.1 %; Eosinophils # (auto) 0.06 K/uL (0-0.5); Eosinophils % (auto) 0.8 %; Hematocrit (blood only) 35.9 % (37-47); Hemoglobin 11.3 g/dL (12.0-16.0); Immature Granulocytes # (auto) 0.01 K/uL (0.00-0.02); Immature Granulocytes % (auto) 0.1 %; Lymphocytes # (auto) 2.14 K/uL (1.2-3.4); Lymphocytes % (auto) 29.8 %; Mean Corpuscular Hemoglobin 28.6 pg (25-34); Mean Corpuscular Hgb Conc 31.5 g/dL (32-36); Mean Corpuscular Volume 90.9 fL (80-100); Mean Platelet Volume 9.7 fL (7.4-10.4); Monocytes # (auto) 0.77 K/uL (0.11-0.59); Monocytes % (auto) 10.7 %; Neutrophils # (auto) 4.19 K/uL (1.4-6.5); Neutrophils % (auto) 58.5 %; Platelet Count 238 K/uL (130-400); RDW Coefficient of Variation 14.2 % (11.5-14.5); RDW Standard Deviation 47.7 fL (36.4-46.3); Red Blood Count 3.95 M/uL (4.2-5.4); White Blood Count 7.18 K/uL (4.8-10.8)
[2020-11-20 03:14] LABS: BUN Creatinine Ratio 19.8 (10-20); Blood Urea Nitrogen 18 mg/dl (7-18); Calcium 8.9 mg/dl (8.5-10.1); Carbon Dioxide 25 mmol/L (21-32); Chloride 107 mmol/L (98-107); Creatinine Clr Calc Pharmacy 40.9 ml/min; Est GFR (African American) 67.7 ml/min; Est GFR (Non-African American) 58.5 ml/min; Glucose 96 mg/dl (70-99); HDL Cholesterol 57 mg/dl; LDL Cholesterol Direct 102 mg/dl; Potassium 4.1 mmol/L (3.5-5.1); Sodium 138 mmol/L (136-145)
[2020-11-20 03:38] LABS: Chol HDL Ratio 3; Cholesterol 171 mg/dl (0-200); Triglycerides 92 mg/dl (0-150); VLDL Cholesterol 18 mg/dl
[2020-11-20 06:36] LABS: Estimated Average Glucose 126 mg/dl
--- NOTE | 2020-11-20 07:51 | Critical Care Progress Note ---
Date of Service November 20, 2020 Assessment & Plan (1) ST elevation (STEMI) myocardial infarction involving right coronary artery: Plan: Reason Critically Ill: 80 year old female who presented en-route via EMS as a heart alert with w/ atypical angina, ecg w/ anterolateral ST elevations, trop of 0.171. She is in the ICU for management status post PCI with CT on 11/19/20. Plan is for patient to obtain PCI for 70-80% small proximal LAD. Neuro - [facility] ICU: negative Cardiac - RCA STEMI, coronary artery disease Cardiac cath: 1. Inferolateral STEMI/100% acute earlymid RCA occlusion 2. 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 Medical regimen per interventional cardiology: DAPT x 1 year. Atorvastatin increased to 40mg daily. Metoprolol tartrate PO 12.5mg PO BID. TTE: Normal LV systolic function. EF 60-65. Small area of hypokinesis of distal inferior wall. Mild concentric LVH. Return to central lab technician today for PCI of LAD. HTN Widened pulse pressure noted. Most likely 2/2 atherosclerosis given hx of CAD and audible bruits. Less likely from thyroid, pulmonary, anemia causes. Continue home losartan. HLD Atorvastatin 40mg daily as above. Fasting lipid profile reviewed. 92 T. 171 chol. LDL 102. HDL 57 Respiratory - No hx of respiratory disease. Patient is saturating well on room air. GI - Currently NPO. Protonix 40 PO qAM. RENAL/LYTES - No significant electrolyte derangement. NSS discontinued Replace lytes as needed. - No concerns at this time. ENDO - No hx of DM or thyroid disease. A1C 6.0, consistent w/ preDM HEME - Stable H&H. Monitor. ID - No concerns for infection. 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 Lebron was the resident-physician during care of patient. I separately evaluated patient for mena portions of the history and the exam. I was present during the critical portion of medical decision making, and I discussed the case with the resident. I generally agree with the findings and plan except for any additions/exceptions noted. Patient seen and examined at bedside. No acute distress. Patient is s/p stent placement in the RCA 11/20/20 Patient state that she is feeling better. Denies any chest pain, no headache, no nausea, no vomiting. Patient did have little bit of breakfast in the morning. Dr. Chandler saw the patient. She is planning to have another cath done for the 70% LAD lesion Constitutional: No acute distress HEENT: EOMI, PERRLA Respiratory system: Good air entry bilaterally, no wheeze, no rhonchi, no crackles CVS: S1-S2 positive, no murmurs or gallops Abdomen: Soft, nontender, nondistended, positive bowel sounds x4 Extremities: +2 pulses bilaterally radialis/ dorsalis pedis, no cyanosis, no edema Neuro: Awake alert oriented x3 Psych: Normal mood and affect G/U: No Petty --Prophylaxis VTE: IPC's GI: Protonix Lines: Peripheral Diet: Cardiac Plan: In/out: Positive weight 70, urine output 700 Continue with dual antiplatelet therapy Continue with statin and beta-kamron Patient to go to telemetry floor after the cath Please note the above document was generated using voice recognition software. It may contain grammatical, syntax or spelling errors.Any formal questions or concerns about the content, text or information contained within the body of this dictation should be directly addressed to the provider for clarification. Subjective No complaints overnight. Patient feels well. She is eating breakfast. Per interventional cardiology, planning to return to central lab technician today for PCI of the 70-80% small proximal LAD. Review of Systems Review of Systems: Constitutional: Denies fever, chills Eyes: Denies blurry vision, vision changes ENT: Denies sore throat, sinus pain Cardiovascular: Denies chest pain, palpitations Respiratory: Denies shortness of breath Gastrointestinal: Denies abdominal pain, nausea, vomiting, constipation, diarrhea Genitourinary: Denies urinary symptoms including dysuria Musculoskeletal: Denies weakness, muscle aches/pain, joint aches/pain Neurological: Denies headache, numbness, tingling, focal weakness Physical Exam 2 Physical Exam: General: Well appearing. Grossly A&O. NAD. Cooperative. HEENT: Atraumatic, normocephalic. EOMI. PERRL. Bilateral carotid bruits. Pulm: CTAB. -wheezes, -rales, -rhonchi. Exam unchanged from yesterday. No respiratory distress. Cardiac: RRR, -mrg. Radial pulses intact and symmetrical. No pitting edema appreciated at BLE. Abdominal: Nontender, nondistended, soft. Integumentary: No rash. PIVs intact and w/o erythema. Results & Data Results & Data ([facility]) Vital Signs (Past 12 Hours) Vital Signs 120s/40s. 91-94 on RA. afeb. Temp Pulse Pulse Resp BP BP Pulse Ox 11/20/20 07:41 62 11/20/20 07:39 36.4 C L 74 16 126/51 L 94 11/20/20 06:21 63 19 141/53 H 94 11/20/20 05:21 63 20 137/60 94 11/20/20 04:21 36.9 C 62 18 125/47 L 92 11/20/20 03:21 65 21 123/49 L 92 11/20/20 02:21 63 18 122/47 L 95 11/20/20 01:21 66 19 112/49 L 91 11/20/20 00:21 66 20 108/44 L 93 11/19/20 23:52 37 C 73 19 115/50 L 96 11/19/20 23:21 65 19 119/56 L 96 11/19/20 22:51 60 14 110/50 L 96 11/19/20 22:21 63 17 126/51 L 95 11/19/20 21:51 68 19 133/52 L 95 11/19/20 21:21 20 137/55 L 98 11/19/20 20:51 67 18 128/48 L 95 11/19/20 20:21 71 16 117/47 L 96 11/19/20 19:51 36.7 C 76 17 114/48 L 96 Laboratory Results no leukocytosis. Hb 12.4->11.3. electrolytes acceptable. Cr acceptable. A1c 6.0. trop 0.171->6.49->11.3->7.29. LDL 102. no new liver panel. no new imaging. cumulative 1.6L in 700 out. Cardiac Enzymes 11/19/20 11/19/20 11/19/20 Range/Units 13:20 13:20 20:41 AST 16 (15-37) U/L CK-MB (CK-2) 3.4 (0.5-3.6) ng/ml Troponin I Cancelled 0.171 H* 6.490 H* 11/20/20 11/20/20 Range/Units 02:06 09:49 AST (15-37) U/L CK-MB (CK-2) (0.5-3.6) ng/ml Troponin I 11.300 H* 7.290 H* Coagulation 11/19/20 Range/Units 13:20 PT 10.5 (9.0-12.0) Seconds APTT 27.3 (21.0-31.0) Seconds Lipids 11/20/20 Range/Units 02:06 Triglycerides 92 (0-150) mg/dl Cholesterol 171 (0-200) mg/dl HDL Cholesterol 57 mg/dl Cholesterol/HDL Ratio 3 CBC 11/19/20 11/20/20 Range/Units 13:20 02:06 WBC 9.71 7.18 (4.8-10.8) K/uL RBC 4.39 3.95 L (4.2-5.4) M/uL Hgb 12.4 11.3 L (12.0-16.0) g/dL Hct 39.9 35.9 L (37-47) % Plt Count 282 238 (130-400) K/uL Neut # (Auto) 5.65 4.19 (1.4-6.5) K/uL Lymph # (Auto) 3.37 2.14 (1.2-3.4) K/uL Gray # (Auto) 0.61 H 0.77 H (0.11-0.59) K/uL Eos # (Auto) 0.04 0.06 (0-0.5) K/uL Baso # (Auto) 0.02 0.01 (0-0.2) K/uL Comprehensive Metabolic Panel 11/19/20 11/20/20 Range/Units 13:20 02:06 Sodium 138 138 (136-145) mmol/L Potassium 3.9 4.1 (3.5-5.1) mmol/L Chloride 103 107 (98-107) mmol/L Carbon Dioxide 26 25 (21-32) mmol/L BUN 17 18 (7-18) mg/dl Creatinine 1.04 0.93 (0.6-1.2) mg/dl Glucose 144 H 96 (70-99) mg/dl Calcium 9.5 8.9 (8.5-10.1) mg/dl AST 16 (15-37) U/L ALT 16 (12-78) U/L Alkaline Phosphatase 73 (45-117) U/L Total Protein 7.5 (6.4-8.2) gm/dl Albumin 3.5 (3.4-5.0) gm/dl Intake and Output 11/19/20 11/20/20 11/20/20 22:59 06:59 14:59 Intake Total 580 / 1570 990 / 1570 240 / 240 Output Total 300 / 700 400 / 700 800 / 800 Balance 280 / 870 590 / 870 -560 / -560 Intake: IV 750 / 750 Sodium Chloride 0.9% 1000ML 1, 750 / 750 000 ml @ 100 mls/hr IV .Q10H BARRY Rx#:[id number] Oral 580 / 820 240 / 820 240 / 240 Output: Urine 300 / 700 400 / 700 800 / 800 # Bowel Movements 0 / 0 0 / 0 Other: Other Intake Source npo Weight 64.4 kg Weight Measurement Method Built in [facility] ECG Additional Comments: 11/20/20 ecg. Official report pending. Per my interpretation (resident): Anterolateral ST elevations from yesterday are not present. Inferior lead ST inversions more prominent. Compared to the 2 ecgs obtained on 11/19/20. Resident Activity Tracking Resident Involvement: Resident Care Provided Care Provided: Adult Hospital Medicine
[2020-11-20] MEDS: METOPROLOL TARTRATE 25 MG TAB PO SCH ×2 (08:08→20:07)
[2020-11-20] MEDS: ASPIRIN 81 MG ECTAB PO SCH (08:09)
[2020-11-20] MEDS: LOSARTAN POTASSIUM 25 MG TAB PO SCH (08:09)
[2020-11-20] MEDS: ATORVASTATIN 40 MG TAB PO SCH (08:09)
[2020-11-20] MEDS: TICAGRELOR 90 MG TAB PO SCH ×2 (08:09→20:07)
[2020-11-20] MEDS: PANTOprazole 40 MG TAB PO SCH (11:26)
[2020-11-20] MEDS ORDERED: fentaNYL citrate 100 MCG/2 ML VIAL ONE (12:07)
[2020-11-20] MEDS ORDERED: niCARdipine HCL INJ 2.5 MG/ML 10 ML AMP ONE (12:07)
[2020-11-20] MEDS ORDERED: HEPARIN (PORCINE) 1000 UNIT/ML 10 ML (CATH LAB USE ONLY) ONE (12:07)
[2020-11-20] MEDS ORDERED: MIDAZOLAM HCL 1 MG/ML 2ML VIAL ONE (12:07)
[2020-11-20] MEDS ORDERED: NITROGLYCERIN/D5W 100MCG/ML 20ML SYR ONE (12:08)
--- NOTE | 2020-11-20 13:01 | Post Anesthesia Assessment ---
Date of Service November 20, 2020 Post Sedation Assessment Vital Signs Temp Pulse Pulse Resp BP BP Pulse Ox 11/20/20 11:45 97.9 F 95 11/20/20 11:22 58 L 19 148/37 H 11/20/20 10:21 58 L 20 129/49 L 11/20/20 09:21 25 H 144/72 H 11/20/20 08:21 74 22 130/43 L 11/20/20 08:00 62 11/20/20 07:41 62 11/20/20 07:39 97.5 F L 74 16 126/51 L 94 11/20/20 06:21 63 19 141/53 H 94 11/20/20 05:21 63 20 137/60 94 11/20/20 04:21 98.4 F 62 18 125/47 L 92 11/20/20 03:21 65 21 123/49 L 92 11/20/20 02:21 63 18 122/47 L 95 11/20/20 01:21 66 19 112/49 L 91 11/20/20 00:21 66 20 108/44 L 93 11/19/20 23:52 98.6 F 73 19 115/50 L 96 11/19/20 23:21 65 19 119/56 L 96 11/19/20 22:51 60 14 110/50 L 96 11/19/20 22:21 63 17 126/51 L 95 11/19/20 21:51 68 19 133/52 L 95 11/19/20 21:21 20 137/55 L 98 11/19/20 20:51 67 18 128/48 L 95 11/19/20 20:21 71 16 117/47 L 96 11/19/20 19:51 98.1 F 76 17 114/48 L 96 11/19/20 19:21 72 20 125/49 L 96 11/19/20 18:21 70 24 120/52 L 95 11/19/20 18:00 98.4 F 11/19/20 17:51 81 20 125/63 95 11/19/20 17:36 82 20 141/67 H 97 11/19/20 17:21 78 23 127/61 95 11/19/20 17:06 83 15 130/49 L 99 11/19/20 16:51 85 18 129/60 97 11/19/20 16:36 88 15 103/80 95 11/19/20 16:21 80 127/50 L 100 11/19/20 16:06 78 19 126/54 L 100 11/19/20 15:51 74 17 127/53 L 100 11/19/20 15:36 77 22 125/51 L 98 11/19/20 14:45 81 16 108/45 L 91 11/19/20 14:28 84 16 114/43 L 92 11/19/20 13:22 97.7 F 18 11/19/20 13:20 76 23 140/66 97 11/19/20 13:17 75 21 122/59 L 97 Recovery Score Activity: Moves 4 extremities Respiration: Deep Breath/Cough Circulation: +/-20% PreAnes Value Consciousness: Fully Awake Oxygen Saturation: > 92% On Room Air Post Anesthesia Score: 10 Discharge Sedation Level of Care: Fast Track Phase II Post Sedation Plan On clinical assessment, the patient appears to have tolerated the sedation without complications. Patient is recovering as anticipated. Patient will continue to be monitored by nursing and may be discharged when sedation discharge criteria are met per below protocol. Upon Completions of procedure up to 15 minutes continue every 5 minute vital signs and the P.A.R. score; then discharge to a Phase I or Fast Track to Phase II per the following guidelines: * Discharge Patient to appropriate Phase II area if PAR is 8 or greater or return to pre- procedure baseline. The post - procedure orders will be as directed. * If PAR score is less than 8 or not return to pre-procedure baseline then patient will follow Phase I monitoring till PAR is reached for Phase II. The Phase I may be done in procedure room or may call to secure a Phase I area. * If naloxone or flumazenil are used for reversal, hold in Phase I for continued monitoring from when last reversal dose was given for a minimum of 60 minutes or longer pending the nurse and/or physician discretion of patient condition before discharge to Phase II. Please call the Sedation Physician to re-evaluate and complete post-note for discharge to Phase II area. Do NOT discharge from procedure sedation or Phase 1 until post- sedation evaluation note is complete by procedure /sedation MD Sedation Discharge Instructions to be given to the patient at discharge to home.
--- NOTE | 2020-11-20 13:04 | Cardiac Catheterization ---
ACC Data: Partner Cco Cardiac Status Clinical evaluation leading to the procedure CAD Presenation: STEMI Anginal Classification: CCS IV Heart Failure: No Cardiogenic Shock within 24 Hours: No Cardiac Arrest within 24 Hours: No Imaging Studies Past 6 Months: Yes Stress Studies Past 6 Months: No Diagnostic Physicians Name: Bob Chandler MD Status: Elective Closure Device Percutaneous Entry Location: Radial Closure Device: Radial Band Recommendations: PCI without planned CABG PCI Indication: Staged PCI Lesion Segment Name: Proximal LAD Culprit Artery: Yes Stenosis Prior to Rx (%): 75 Chronic Total Occlusion: No IVUS: No FFR: No Pre-Procedure SEEMA Flow: 3 Previously Treated Lesion: No Lesion Complexity: Non-High/Non-C Lesion Length (mm): 12 Thrombus Present: No Bifurcation Lesion: No Guidewire Across Lesion: Stenosis Post-Procedure (%): 0 Post-Procedure SEEMA Flow: 3 Devices(s) Deployed: Yes Yes Intraprocedure Events Significant Disection: No Perforation: No Cardiac Cath Procedure Full Procedure Date November 20, 2020 Pre-Procedure Diagnosis Pre-Procedure Diagnosis: CAD AUC Score AUC Score: 7 Post-Procedure Diagnosis Post-Procedure Diagnosis: Severe CAD and Successful PCI Procedure(s) Performed Procedure(s) Performed: Coronary Angiography and Drug Eluting Stent Flexo Folder Gluer Operator Bob Chandler MD Insurance Sales Specialist(s) Showers Estimated Blood Loss Estimated Blood Loss: 15 Medication(s) Medication(s): Fentanyl, Heparin, Lidocaine 1%, Nicardipine, Nitroglycerin and Versed Medication(s): Ticagrelor Summary of Findings Indication: Staged PCI of LAD. Post primary PCI for inferior [place] with CT to proximal to mid RCA yesterday Access: 6 Fr right radial artery Catheters: JL 3.5 guide Findings: For full details of patient's coronary angiography please see cath report from 11/19/2020. Patient again found to have severe 70 to 80% disease in the proximal aspect of her small LAD. -- PCI -- Antithrombotic therapy: Heparin, ticagrelor Procedure: Left main cannulated with JL 3.5 guide BMW wire passed across lesion into distal vessel Proximal LAD lesion predilated with 2.0 compliant balloon Dilated lesion stented with 2.25 x 18 mm Andi drug-eluting stent Stent post-dilated with 2.5 noncompliant balloon IC vasodilators administered for spasm Post procedure SEEMA 3 flow, stent well expanded with minimal residual stenosis and no apparent cardiac complications. Arterial Closure: TR band Summary: 1. Successful PCI of proximal to mid LAD with single drug-eluting stent (2.25 x 18 mm Andi; postdilated with 2.5 NC). Recommendations: Okay to transfer to PCU. Continue DAPT with aspirin, ticagrelor. Hemodynamics Rest Ao:: 127/51/90 Final Ao: 147/53/95 LV: -- Recommendations Recommendations: PCI without planned CABG Specimens Specimens: None Radiation Exposure (mGy) 1002 Contrast (mls) 70 Drains Drains: None Anesthesia Moderate 9595-4265 Procedural Complication(s) None Disposition PCU I attest to the content of the Intraoperative Record and any orders documented therein. Any exceptions are noted below. [facility] Card Cath Procedure Codes Moderate Sedation Procedure 1: Sedation/Anesthesia: 91687 Mod Sedation by the same physician;Init15 Min Child Age 5 & Up Procedure 2: Sedation/Anesthesia: 67431 Mod Sedation by the same physician; Ea [id number] Minutes Stenting Procedure 1: Cardiovascular Stent Procedures: 48678 Perc transcatheter placement of intracoronary stent(s), with ang PG Care Time/CCT Total # of Minutes Spent Total Time Spent with Patient: Total time spent is greater than 50% in coordination of care (as documented) at patient's floor/unit and/or counseling patient:
[2020-11-20] MEDS ORDERED: SODIUM CHLORIDE 0.9% 1000ML 1,000 ML IV SCH (13:15)
--- NOTE | 2020-11-20 14:54 | Hospitalist Progress Note ---
Date of Service November 20, 2020 Assessment & Plan (1) ST elevation (STEMI) myocardial infarction involving right coronary artery: Plan: Heart alert on 11/19. -> Successful placement of drug-eluting stent to RCA by Dr. Chandler. -> Staged PCI with 1 CT to the proximal LAD on 11/20. - TR band still in place -deflate and remove per protocol - Continue ASA/ticagrelor, beta-kamron, ARB, & statin - Discharge plan per Dr. Chandler (2) Hypertension: Plan: Generally controlled as an outpatient with losartan. BP today is 140/60. - Continue above meds (3) Hyperlipidemia: Plan: Patient on atorvastatin 10 mg daily on admission. - Increased to 40 mg daily (4) GERD (gastroesophageal reflux disease): Plan: Patient was on omeprazole chronically as an outpatient but this was stopped secondary to nausea and vomiting. - Continue PPI - We will place patient on pantoprazole while inpatient and then discontinue PPI as an outpatient (5) DVT prophylaxis: Plan: SCDs - No heparin at present Admission and Anticipated Discharge Date Admission Date: November 19, 2020 Subjective Seen after staged LHC today and CT to LAD. Reports no fevers/chills, chest pain, shortness of breath, abdominal pain, nausea, or vomiting. Physical Exam Constitutional: WD/WN, vitals as above Eyes: EOM intact bilaterally; no conjunctival abnormality ENMT: external ear and nose normal, oropharynx normal Neck: trachea midline, no thyromegaly normal visual inspection Respiratory: normal respiratory effort, lungs clear to auscultation no respiratory distress Cardiovascular: RRR, no murmur, no edema Gastrointestinal (Abdomen): Inspection/Auscultation: abdomen normal to inspection; abdomen not distended Musculoskeletal: no cyanosis or clubbing, extremities motor strength 5/5 Band on right arm Skin: no rashes, warm and dry Neurologic: moves all extremities and awake Psychiatric: Orientation: alert, oriented to person and cooperative Results & Data Results & Data ([facility]) Vital Signs (Past 12 Hours) Vital Signs Temp Pulse Pulse Resp BP BP Pulse Ox 11/20/20 13:36 62 19 141/62 H 94 11/20/20 13:25 62 19 11/20/20 13:15 62 16 136/58 L 93 11/20/20 13:00 63 16 147/65 H 94 11/20/20 11:45 36.6 C 95 11/20/20 11:22 58 L 19 148/37 H 11/20/20 10:21 58 L 20 129/49 L 11/20/20 09:21 25 H 144/72 H 11/20/20 08:21 74 22 130/43 L 11/20/20 08:00 62 11/20/20 07:41 62 11/20/20 07:39 36.4 C L 74 16 126/51 L 94 11/20/20 06:21 63 19 141/53 H 94 11/20/20 05:21 63 20 137/60 94 11/20/20 04:21 36.9 C 62 18 125/47 L 92 11/20/20 03:21 65 21 123/49 L 92 PG Care Time/CCT Total # of Minutes Spent Total Time Spent with Patient: Total time spent is greater than 50% in coordination of care (as documented) at patient's floor/unit and/or counseling patient: Coding Level of Care Code 41446 Subseq Hosp Care Lvl [address] elevation (STEMI) myocardial infarction involving right coronary artery I21.11 Hypertension I10 Hyperlipidemia E78.5 GERD (gastroesophageal reflux disease) K21.9 DVT prophylaxis Z29.9
--- NOTE | 2020-11-20 15:18 | Billing Data ---
Date of Service November 20, 2020 Coding Level of Care Code 04032 Subseq Hosp Care Lvl 3
--- NOTE | 2020-11-20 17:03 | Cardiology Progress Note ---
Date of Service November 20, 2020 Assessment & Plan (1) Acute [place]: Plan: Post PCI with CT to proximal to mid RCA 2. Severe nonculprit disease Post PCI with CT to proximal LAD 3. Preserved LV function 4. Hypertension 5. Dyslipidemia 6. GERD Patient doing well post staged PCI of LAD today. Okay for transfer to telemetry today. Likely home tomorrow morning if no events overnight. Home on DAPT with aspirin, ticagrelor Continue prior losartan, home on Toprol-XL Continue high intensity statin Will need cardiac follow-up in 1 to 2 weeks with further discussion of cardiac rehab at that time. Admission and Anticipated Discharge Date Admission Date: November 19, 2020 Subjective Feeling well today. No recurrent chest pain. Troponin peaked. Echo reviewedpreserved LV function with mild inferior, inferolateral hypokinesis. Telemetry reviewedsinus rhythm, no events Review of Systems Review of Systems: All systems reviewed & are unremarkable except as noted in HPI & below Physical Exam Physical Exam: General: Comfortable, no acute distress HEENT: Sclerae anicteric Lungs: Clear to auscultation bilaterally Cardiac: Regular rate and rhythm, no murmurs. Abdomen: Soft, nontender Extremities: Warm, well perfused, no edema. Right radial artery access site with no ecchymosis, hematoma. Distal pulse and sensation intact. Psych: Alert orient x3, normal affect and mood Results & Data ([facility]) Vital Signs (Past 12 Hours) Vital Signs Temp Pulse Pulse Resp BP BP Pulse Ox 11/20/20 16:51 74 24 141/55 H 11/20/20 16:21 61 18 129/50 L 94 11/20/20 15:52 60 18 131/51 L 95 11/20/20 15:51 63 18 131/51 L 93 11/20/20 15:21 62 20 112/49 L 91 11/20/20 14:53 67 11/20/20 14:51 67 22 132/49 L 94 11/20/20 14:21 71 17 124/77 95 11/20/20 13:36 62 19 141/62 H 94 11/20/20 13:25 62 19 11/20/20 13:15 62 16 136/58 L 93 11/20/20 13:00 63 16 147/65 H 94 11/20/20 11:45 97.9 F 95 11/20/20 11:22 58 L 19 148/37 H 11/20/20 10:21 58 L 20 129/49 L 11/20/20 09:21 25 H 144/72 H 11/20/20 08:21 74 22 130/43 L 11/20/20 08:00 62 11/20/20 07:41 62 11/20/20 07:39 97.5 F L 74 16 126/51 L 94 11/20/20 06:21 63 19 141/53 H 94 11/20/20 05:21 63 20 137/60 94 PG Care Time/CCT Total # of Minutes Spent Total Time Spent with Patient: Total time spent is greater than 50% in coordination of care (as documented) at patient's floor/unit and/or counseling patient: Coding Level of Care Code 49203 Subseq Hosp Care Lvl 3 Diagnoses Acute [place] I21.9
--- NOTE | 2020-11-20 23:13 | Electrocardiogram Report ---
Test Reason : Blood Pressure : / mmHG Vent. Rate : 067 BPM Atrial Rate : 067 BPM P-R Int : 218 ms QRS Dur : 072 ms QT Int : 406 ms P-R-T Axes : 048 040 187 degrees QTc Int : 429 ms Sinus rhythm with 1st degree A-V block ST elevation consider anterolateral injury or acute infarct ACUTE OH / STEMI Abnormal ECG When compared with ECG of 08-APR-2019 13:05, PA interval has increased ST now depressed in Inferior leads ST elevation now present in Anterolateral leads T wave inversion now evident in Inferior leads T wave inversion now evident in Lateral leads Confirmed by Juan aCrlos Chambers ([id number]) on 11/20/2020 11:13:21 PM Referred By: REFERRED SELF Confirmed By:Juan Carlos Chambers
--- NOTE | 2020-11-20 23:16 | Electrocardiogram Report ---
Test Reason : Blood Pressure : / mmHG Vent. Rate : 077 BPM Atrial Rate : 077 BPM P-R Int : 172 ms QRS Dur : 076 ms QT Int : 392 ms P-R-T Axes : 145 -16 114 degrees QTc Int : 443 ms Unusual P axis, possible ectopic atrial rhythm Inferior infarct , age undetermined Possible Anterior infarct , age undetermined Abnormal ECG When compared with ECG of 19-NOV-2020 13:20, Ectopic atrial rhythm has replaced Sinus rhythm Inferior infarct is now Present ST no longer depressed in Inferior leads ST no longer elevated in anterolateral leads Confirmed by Juan Carlos Chambers ([id number]) on 11/20/2020 11:16:09 PM Referred By: REFERRED SELF Confirmed By:Juan Carlos Chambers
--- NOTE | 2020-11-20 23:17 | Electrocardiogram Report ---
Test Reason : Blood Pressure : / mmHG Vent. Rate : 074 BPM Atrial Rate : 074 BPM P-R Int : 164 ms QRS Dur : 070 ms QT Int : 396 ms P-R-T Axes : 062 -05 -29 degrees QTc Int : 439 ms Normal sinus rhythm Minimal voltage criteria for LVH, may be normal variant Inferior infarct (cited on or before 19-NOV-2020) Anterior infarct (cited on or before 19-NOV-2020) Abnormal ECG When compared with ECG of 19-NOV-2020 17:21, Sinus rhythm has replaced Ectopic atrial rhythm T wave inversion more evident in Inferior leads Confirmed by Juan Carlos Chambers ([id number]) on 11/20/2020 11:17:20 PM Referred By: REFERRED SELF Confirmed By:Juan Carlos Chambers
--- NOTE | 2020-11-20 23:18 | Electrocardiogram Report ---
Test Reason : Blood Pressure : / mmHG Vent. Rate : 066 BPM Atrial Rate : 066 BPM P-R Int : 178 ms QRS Dur : 070 ms QT Int : 442 ms P-R-T Axes : 076 001 -40 degrees QTc Int : 463 ms Normal sinus rhythm Inferior infarct (cited on or before 19-NOV-2020) T wave abnormality, consider inferolateral ischemia Abnormal ECG When compared with ECG of 20-NOV-2020 08:32, No significant change was found Confirmed by Juan Carlos Chambers ([id number]) on 11/20/2020 11:18:06 PM Referred By: REFERRED SELF Confirmed By:Juan Carlos Chambers
[2020-11-21 07:25] LABS: Basophils # (auto) 0.02 K/uL (0-0.2); Basophils % (auto) 0.3 %; Eosinophils # (auto) 0.08 K/uL (0-0.5); Eosinophils % (auto) 1.2 %; Hematocrit (blood only) 35.9 % (37-47); Hemoglobin 11.3 g/dL (12.0-16.0); Immature Granulocytes # (auto) 0.01 K/uL (0.00-0.02); Immature Granulocytes % (auto) 0.1 %; Lymphocytes % (auto) 24.5 %; Mean Corpuscular Hemoglobin 28.5 pg (25-34); Mean Corpuscular Hgb Conc 31.5 g/dL (32-36); Mean Corpuscular Volume 90.4 fL (80-100); Mean Platelet Volume 10.5 fL (7.4-10.4); Monocytes # (auto) 0.69 K/uL (0.11-0.59); Monocytes % (auto) 9.9 %; Neutrophils # (auto) 4.45 K/uL (1.4-6.5); Platelet Count 237 K/uL (130-400); RDW Coefficient of Variation 14.2 % (11.5-14.5); RDW Standard Deviation 47.4 fL (36.4-46.3); Red Blood Count 3.97 M/uL (4.2-5.4); White Blood Count 6.95 K/uL (4.8-10.8)
[2020-11-21 07:27] VITALS: BP 175/98; PULSE 81; TEMP 98.2; O2SAT 94
[2020-11-21 08:06] LABS: BUN Creatinine Ratio 15.5 (10-20); Calcium 8.1 mg/dl (8.5-10.1); Creatinine Clr Calc Pharmacy 43.9 ml/min; Est GFR (African American) 78.9 ml/min; Est GFR (Non-African American) 68.1 ml/min; Potassium 3.8 mmol/L (3.5-5.1)
[2020-11-21] MEDS: METOPROLOL TARTRATE 25 MG TAB PO SCH (08:07)
[2020-11-21] MEDS: TICAGRELOR 90 MG TAB PO SCH (08:07)
[2020-11-21] MEDS: PANTOprazole 40 MG TAB PO SCH (08:08)
[2020-11-21] MEDS: ASPIRIN 81 MG ECTAB PO SCH (08:08)
[2020-11-21] MEDS: ATORVASTATIN 40 MG TAB PO SCH (08:09)
[2020-11-21] MEDS: LOSARTAN POTASSIUM 25 MG TAB PO SCH (08:09)
--- NOTE | 2020-11-21 10:23 | Cardiology Progress Note ---
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 Preserved LV function 4. Hypertension 5. Dyslipidemia 6. GERD Patient doing well post staged PCI of LAD yesterday. No events overnight. Okay with discharge to home today. Home on DAPT with aspirin, ticagrelor Continue losartan 25 dailyfurther titration as necessary as an outpatient Increase metoprolol, home on Toprol-XL 50 mg daily Continue high intensity statin Follow-up with me in 1 to 2 weeks. Admission and Anticipated Discharge Date Admission Date: November 19, 2020 Subjective Didn't sleep overnight but no recurrent chest pain. No other new concerns. Telemetry reviewedno events Review of Systems Review of Systems: All systems reviewed & are unremarkable except as noted in HPI & below Physical Exam Physical Exam: General: Comfortable, no acute distress HEENT: Sclerae anicteric Lungs: Clear to auscultation bilaterally Cardiac: Regular rate and rhythm, no murmurs. Abdomen: Soft, nontender Extremities: Warm, well perfused, no edema. Right radial artery access site with no ecchymosis, hematoma. Distal pulse and sensation intact. Psych: Alert orient x3, normal affect and mood Results & Data ([facility]) Vital Signs (Past 12 Hours) Vital Signs Temp Pulse Pulse Resp BP Pulse Ox 11/21/20 07:26 98.2 F 81 20 175/98 H 94 11/21/20 07:18 71 11/21/20 03:36 97.9 F 72 18 159/69 H 93 11/20/20 22:55 98.4 F 71 18 156/78 H 94 11/20/20 22:19 67 PG Care Time/CCT Total # of Minutes Spent Total Time Spent with Patient: Total time spent is greater than 50% in coordination of care (as documented) at patient's floor/unit and/or counseling patient: Coding Level of Care Code 07363 Subseq Hosp Care Lvl 3 Diagnoses Acute [place] I21.9
--- NOTE | 2020-11-21 17:45 | Discharge Summary ---
Date of Service November 21, 2020 Admission HPI Per Admitting Provider Attending: Dr. Rehman This is a 80-year-old female with a past medical history including hyperlipidemia, chin, GERD, osteoarthritis, arthrofibrosis of knee, partial blindness. The patient was at home doing gardening when she began having chest pain. She rates the initial chest pain as 8-9 out of 10. She sat down and rested for a while and states that the pain reduced to a 7 out of 10 so she went back to gardening. The pain continued and elevated back up to an 8 or 9 so she went inside and called for help. The patient was brought to the emergency department and found to have EKG changes. A heart alert was called and patient was taken to the catheterization clinic urgently and found to have 100% in-stent blockage of the RCA. She received a drug-eluting stent and was transferred to the int ensive care unit for postoperative management. The patient states that she has minimal risk factors. She only smoked for 2 or 3 years in her late teens early 20s. She has no other risk factors. She has no first-degree relatives with heart disease. She does report that she had some nausea at the time of her chest pain. She has not had chest pain or cardiac issues in the past. Patient has no other acute complaints. Principal Diagnosis STEMI Discharge Exam Constitutional WD/WN, vitals as above Eyes EOM intact bilaterally; no conjunctival abnormality ENMT external ear and nose normal, oropharynx normal Neck trachea midline, no thyromegaly normal visual inspection Respiratory normal respiratory effort, lungs clear to auscultation no respiratory distress Cardiovascular RRR, no murmur, no edema Gastrointestinal (Abdomen) Inspection/Auscultation: abdomen normal to inspection; abdomen not distended Musculoskeletal no cyanosis or clubbing, extremities motor strength 5/5 Skin no rashes, warm and dry Neurologic moves all extremities and awake Psychiatric Orientation: alert, oriented to person and cooperative Discharge Data Allergies Allergy/AdvReac Type Severity Reaction Status Date / Time cimetidine [From Tagamet] Allergy Mild RASH Verified 08/25/19 07:18 Consultations 11/19/20 14:33 Consult Cardiac Rehabilitation Routine 11/19/20 14:34 Consult Utility System Repairer Routine Consult Utility System Repairer Routine Procedures Performed Operation Date: 11/19/20 13:15 Actual Procedures s Cineradiography w/Routine Exam - Jay R. Chandler, MD p Aspiration/PCI w/CT for Stemi - Jay Chandler MD s Cath, Left with Cors and Vent - Jay Chandler MD Operation Date: 11/20/20 12:00 Actual Procedures s Cath, Left with Cors and Vent - Jay Chandler MD p Drug Eluting Stent SGl Vessel - Jay Chandler MD s Cineradiography w/Routine Exam - Jay Chandler MD Ordered Studies 11/19/20 13:16 CL Cath Imgs for PACS use only Stat 11/20/20 08:55 CL Cath Imgs for PACS use only Stat Hospital Course (1) ST elevation (STEMI) myocardial infarction involving right coronary artery: Heart alert on 11/19. -> Successful placement of drug-eluting stent to RCA by Dr. Chandler. -> Staged PCI with 1 CT to the proximal LAD on 11/20. - TR band still in place -deflate and remove per protocol - Discharged on ASA/ticagrelor, Toprol XL, ARB, & increased statin dose - Follow up in [address] Chandler. (2) Hypertension: Generally controlled as an outpatient with losartan. BP today is 140/60. - Continue above meds (3) Hyperlipidemia: Patient on atorvastatin 10 mg daily on admission. - Increased to 40 mg daily (4) GERD (gastroesophageal reflux disease): Patient was on omeprazole chronically as an outpatient but this was stopped secondary to nausea and vomiting. - Continue PPI - We will place patient on pantoprazole while inpatient and then discontinue PPI as an outpatient (5) DVT prophylaxis: SCDs - No heparin at present Total Time Total Time Spent Total Time Spent (In Minutes): 35 Discharge Plan Discharge Items Patient Disposition: Home - Self-Care Reason For Visit: STEMI Discharge Diagnosis: STEMI -> Heart attack Activity: Resume your previous activity Non-emergency contact: Primary Care Provider and Curriculum Advisory Teacher Call non-emergency contact if: your symptoms worsen, your pain is not controlled and your pain is worsening Follow-up/Referrals: Jay Chandler MD [Physician] - (Please see Dr. Chandler in 1-2 weeks.) Tracy Flannery DO [Primary Care Provider] - 11/26/20 10:30 am Diet: Heart Healthy Addtl Attending Provider Instructions: Ms. Amor, You were admitted with a heart attack. The heart doctors found two narrowing areas of the blood vessels in your heart. They were able to open both of these up with two stents over two days. Please take your cardiac medications to ensure the stents stay healthy and stay open. Please see Dr. Chandler in the next 1-2 weeks to see how you are doing. Pending Studies at Discharge: No Stand-Alone Forms: [facility], Smoking Cessation Medications and DC Order Prescriptions: New atorvastatin 40 mg Tablet 40 mg PO QAM Qty: 30 RF: 0 Brilinta 90 mg Tablet 90 mg PO BID Qty: 60 RF: 0 metoprolol succinate [Toprol XL] 50 mg tablet extended release 24 hr 50 mg PO DAILY Qty: 30 RF: 0 Continued Complete Multivitamin Tablet 1 tab PO QDL RF: 0 omeprazole 20 mg capsule,delayed release(DR/EC) 20 mg PO DIRECTED RF: 0 omega-3 fatty acids [Fish Oil Concentrate] 1,000 mg capsule 1,000 mg PO QDD RF: 0 Calcium 600 + D(3) 600 mg calcium- 200 unit Capsule 1 cap PO QDL RF: 0 losartan 25 mg Tablet 25 mg PO QAM RF: 0 PreserVision AREDS-2 [id number] Capsule 1 tab PO QDL RF: 0 aspirin [Adult Low Dose Aspirin] 81 mg tablet,delayed release (DR/EC) 81 mg PO BID 42 Days Qty: 0 RF: 0 Discontinued atorvastatin 10 mg Tablet 10 mg PO PM RF: 0 Discharge Orders: Discharge Order (Routine); Ordered 11/21/20 Ordered By: Garret Arambula/Other Patient Handouts: A1C, 5 Steps for Eating Healthier, Exercise: Why Fitness Matters Admission Data Admit Date/Time: 11/19/20 14:34 Attending Provider: Garret Wilkerson Admit Provider: Jay Chandler Primary Care Provider: Tracy Flannery Other Providers: Carmine Lundberg Other Interventions: Discharge Summary Assessment (RN) Last Done: 11/21/20 11:01 Coding Level of Care Code D/C DAY MANAGEMENT >[address] elevation (STEMI) myocardial infarction involving right coronary artery I21.11 Hypertension I10 Hyperlipidemia E78.5 GERD (gastroesophageal reflux disease) K21.9 DVT prophylaxis Z29.9
== END 2020-11-21 11:30 | disposition home or self-care (01) | DRG 247 ==
LOC: ED 13:15 → CC 13:30 → 1E 14:34 → SUATTDRO 14:34 → 2N 11-20 17:04
DX: I25.118 Atherosclerotic heart disease of native coronary artery with other forms of angina pectoris; Z87.891 Personal history of nicotine dependence; I21.11 ST elevation (STEMI) myocardial infarction involving right coronary artery; Z79.899 Other long term (current) drug therapy; M19.90 Unspecified osteoarthritis, unspecified site; E78.5 Hyperlipidemia, unspecified; I10 Essential (primary) hypertension; I21.19 ST elevation (STEMI) myocardial infarction involving other coronary artery of inferior wall; Z79.82 Long term (current) use of aspirin; K21.9 Gastro-esophageal reflux disease without esophagitis; Z88.8 Allergy status to other drugs, medicaments and biological substances; Z68.26 Body mass index [BMI] 26.0-26.9, adult; E66.9 Obesity, unspecified